=== PATIENT | male | born 1990 | race African-American/Black ===

== ENCOUNTER 2024-06-18 20:29 | Inpatient (IN) | payer OTHER ==
--- NOTE | 2024-06-18 21:43 | ED ---
General Adult HPI - General Chief complaint: Nausea/Vomiting/Diarrhea Stated complaint: Blood Sugar Issues Time Seen by Provider: 06/18/24 21:32 Source: family Mode of arrival: wheelchair - History of Present Illness Initial comments: This patient is a 34-year-old man who is brought to have evaluation of vomiting with dark emesis. The patient has history of sarcoidosis and also reportedly had stroke in February that caused problems with balance and slurred speech. The patient gets most of his care through the [place] area. Most of tonight's history comes from the patient's father who accompanies him. It sounds like the stroke was some sort of hemorrhage, and they do have follow-up with neurosurgery on Sunday. The patient had gone to the [place] area for a birthday constitution party over the weekend and had come back and has been having trouble with nausea, vomiting and not feeling well since that time. The patient also having some substernal pains that are not well-characterized, that accompanied the vomiting. No dyspnea, diaphoresis, or other symptoms. They had checked the patient's blood sugar and it has been running high the last . Onset/Timin -: days(s) Location: chest Radiation: non-radiation Quality: burning, aching Consistency: constant Improves with: none Worsens with: other ( vomiting) Associated Symptoms: nausea/vomiting Treatments Prior to Arrival: none - Related Data Home Medications Medication Instructions Recorded Confirmed Budesonide-Formot 160-4.5 Mcg 2 puff INHALATION RT-BID 06/19/24 06/19/24 [Symbicort 160-4.5 Mcg Inhaler] Simvastatin 40 mg PO DAILY 06/19/24 06/19/24 levETIRAcetam [Keppra] 500 mg PO BID 06/19/24 06/19/24 metFORMIN HCL 500 mg PO BID 06/19/24 06/19/24 Previous Rx's Medication Instructions Recorded Acetaminophen Tab [Tylenol] 650 mg PO Q4HR PRN tab 06/20/24 INSULIN LISPRO (HumaLOG) [HumaLOG] 10 unit SQ ACHS 30 Days #5 each 06/20/24 Insulin Glargine (Lantus) [Lantus 20 unit SQ DAILY@0700 30 Days #4 06/20/24 Vial] each Pantoprazole [Protonix] 40 mg PO DAILY #30 tab 06/20/24 Xgxbh-Ani-Pxfs 280-160-250 mg 1 each PO TID #90 packet 06/20/24 [Neutra-Phos Packet] lisinopriL [Zestril] 5 mg PO DAILY #30 tab 06/20/24 Magnesium Oxide [Mag-Oxide] 200 mg PO DAILY #5 tablet 06/21/24 predniSONE 10 mg PO DAILY tab 06/21/24 Allergies Allergy/AdvReac Type Severity Reaction Status Date / Time No Known Allergies Allergy Verified 06/18/24 21:11 Review of Systems ROS Statement: Those systems with pertinent positive or pertinent negative responses have been documented in the HPI. ROS Other: All systems not noted in ROS Statement are negative. Constitutional: Denies: fever, chills, weakness Respiratory: Denies: cough, dyspnea Cardiovascular: Reports: chest pain. Denies: palpitations, edema, syncope Gastrointestinal: Reports: nausea, vomiting, hematemesis. Denies: abdominal pain, melena, hematochezia Genitourinary: Denies: dysuria Musculoskeletal: Denies: back pain Skin: Denies: rash Neurological: Denies: headache, weakness Past Medical History Past Medical History: Diabetes Mellitus, Hyperlipidemia Additional Past Medical History / Comment(s): Stroke (02/2024), Sarcoidosis (02/2024) Past Surgical History: No Surgical Hx Reported Past Psychological History: No Psychological Hx Reported Smoking Status: Never smoker Past Alcohol Use History: None Reported Past Drug Use History: None Reported - Past Family History Father History Unknown: Yes Family Medical History: No Reported History Mother Family Medical History: Hypertension Additional Family Medical History / Comment(s): grandmother was diabetic General Exam General appearance: alert, in no apparent distress Head exam: Present: atraumatic, normocephalic Eye exam: Present: normal appearance. Absent: scleral icterus, conjunctival injection ENT exam: Present: mucous membranes dry Neck exam: Present: normal inspection Respiratory exam: Present: normal lung sounds bilaterally. Absent: respiratory distress, wheezes, rales, rhonchi, stridor, accessory muscle use Cardiovascular Exam: Present: normal rhythm, tachycardia, normal heart sounds. Absent: systolic murmur, diastolic murmur, rubs, gallop GI/Abdominal exam: Present: soft. Absent: distended, tenderness, guarding, rebound, rigid, mass Extremities exam: Present: normal inspection, normal capillary refill. Absent: pedal edema, calf tenderness Back exam: Present: normal inspection. Absent: CVA tenderness (R), CVA tenderness (L) Neurological exam: Present: alert, oriented X3, CN II-XII intact. Absent: motor sensory deficit Skin exam: Present: warm, dry, intact, normal color. Absent: rash Course Vital Signs 06/18/24 06/18/24 06/18/24 21:06 22:07 23:22 Temperature 97.3 F L Pulse Rate 145 H 130 H 134 H Respiratory 20 18 19 Rate Blood Pressure 124/95 134/121 153/113 O2 Sat by Pulse 97 98 100 Oximetry 06/19/24 06/19/24 06/19/24 02:00 03:05 04:17 Temperature 97.9 F Pulse Rate 133 H 141 H 134 H Respiratory 19 19 16 Rate Blood Pressure 147/112 138/113 139/113 O2 Sat by Pulse 100 99 100 Oximetry 06/19/24 05:25 Temperature 97.5 F L Pulse Rate Respiratory 16 Rate Blood Pressure O2 Sat by Pulse 97 Oximetry EKG Findings - EKG Results: EKG: interpreted by ERMD, sinus rhythm EKG shows: tachycardia (Rate 141) - Blocks, [place], Hypertrophy, ST Abn: QRS axis and voltage: left axis deviation (-30 to -90) Chamber hypertrophy or enlargement: only voltage criteria for left ventricular hypertrophy Repolarization changes or abnormalities: nonspecific abnormality, ST segment, and/or T wave Medical Decision Making - Medical Decision Making Was pt. sent in by a medical professional or institution (, JOSÉ MIGUEL, DEOILING MACHINE OPERATOR, urgent care, hospital, or retirement...) When possible be specific @ -[No] Did you speak to anyone other than the patient for history (EMS, parent, family, police, friend...)? What history was obtained from this source @ -[No] Did you review nursing and triage notes (agree or disagree)? Why? @ -[I reviewed and agree with nursing and triage notes] Were old charts reviewed (outside hosp., previous admission, EMS record, old EKG, old radiological studies, urgent care reports/EKG's, retirement records)? Report findings @ -[No old charts were available Differential Diagnosis (chest pain, altered mental status, abdominal pain women, abdominal pain men, vaginal bleeding, weakness, fever, dyspnea, syncope, h eadache, dizziness, GI bleed, back pain, seizure, CVA, palpatations, mental health, musculoskeletal)? @ -Differential vomiting: Appendicitis, cholecystitis, diverticulosis, ischemic bowel, pancreatitis, hepatitis, UTI, gastroenteritis, incarcerated hernia, bowel obstruction, constipation, inflammatory bowel, hepatitis, peptic ulcer disease, erforated viscus, testicular torsion, this is not meant to be an all-inclusive list EKG interpreted by me (3pts min.). @ -I interpreted [As above] X-rays interpreted by me (1pt min.). @ -[None done] CT interpreted by me (1pt min.). @ -[None done] U/S interpreted by me (1pt. min.). @ -[None done] What testing was considered but not performed or refused? (CT, X-rays, U/S, labs)? Why? @ -[None] What meds were considered but not given or refused? Why? @ -[None] Did you discuss the management of the patient with other professionals (professionals i.e. , PA, DEOILING MACHINE OPERATOR, lab, RT, psych nurse, case management social worker, collection team lead, teacher, radiation officer, welfare case worker)? Give summary @ -[Case discussed with the admitting physician and also with the crew caller and treatment recommendations are incorporated Was smoking cessation discussed for >3mins.? @ -[No] Was critical care preformed (if so, how long)? @ -[No] Were there social determinants of health that impacted care today? How? (Homelessness, low income, unemployed, alcoholism, drug addiction, transpo rtation, low edu. Level, literacy, decrease access to med. care, nursing home, rehab)? @ -[No] Was there de-escalation of care discussed even if they declined (Discuss DNR or withdrawal of care, Hospice)? DNR status @ -[No] What co-morbidities impacted this encounter? (DM, HTN, Smoking, COPD, CAD, Cancer, CVA, ARF, Chemo, Hep., AIDS, mental health diagnosis, sleep apnea, morbid obesity)? @ -[Sarcoidosis, previous hemorrhagic stroke Was patient admitted / discharged? Hospital course, mention meds given and route, prescriptions, significant lab abnormalities, going to OR and other pertinent info. @ -[Patient is a 34-year-old man here for vomiting and found to be in DKA. Also with marked hypercalcemia. The patient started on IV fluid and insulin. Patient will be admitted. Undiagnosed new problem with uncertain prognosis? @ -[No] Drug Therapy requiring intensive monitoring for toxicity (Heparin, Nitro, Insulin, Cardizem)? @ -[No] Were any procedures done? @ -[No] Diagnosis/symptom? @ -[Acute DKA Acute hypercalcemia Acute, or Chronic, or Acute on Chronic? @ -[Acute Uncomplicated (without systemic symptoms) or Complicated (systemic symptoms)? @ -[Uncomplicated Side effects of treatment? @ -[No] Exacerbation, Progression, or Severe Exacerbation? @ -[No] Poses a threat to life or bodily function? How? (Chest pain, [place], [place], pneumonia, PE, COPD, DKA, ARF, appy, cholecystitis, CVA, Diverticulitis, Homicidal, Suicidal, threat to staff... and all critical care pts) @ -[No] All treatments are based on ideal body weight as in ED triage - Lab Data Result diagrams: 06/21/24 05:24 06/21/24 05:24 Lab Results 06/18/24 06/18/24 06/18/24 Range/Units 21:50 21:50 21:50 WBC 8.19 (4.50-10.00) 10*3/uL RBC 6.77 H (4.40-5.60) 10*6/uL Hgb 19.7 H* (13.0-17.0) g/dL Hct 56.2 H (39.6-50.0) % MCV 83.0 (80.0-97.0) fL MCH 29.1 (27.0-32.0) pg MCHC 35.1 (32.0-37.0) g/dL Plt Count 315 (140-440) 10*3/uL MPV 11.1 (9.5-12.2) fL Immature Gran % (Auto) 0.7 % Neutrophils % 86.0 % Lymphocytes % 5.5 % Monocytes % 7.2 % Eosinophils % 0.0 % Basophils % 0.6 % Immature Gran # 0.06 H (0.00-0.04) 10*3/uL Neutrophils # 7.04 (1.80-7.70) 10*3/uL Lymphocytes # 0.45 L (0.90-5.00) 10*3/uL Monocytes # 0.59 (0.20-1.00) 10*3/uL Eosinophils # 0.00 L (0.04-0.35) 10*3/uL Basophils # 0.05 (0.00-0.10) 10*3/uL VBG pH 7.18 L* (7.31-7.41) VBG pCO2 38 (37-51) mmHg VBG HCO3 14 L (24-28) mmol/L Sodium 133 L (137-145) mmol/L Potassium 5.5 H (3.5-5.1) mmol/L Chloride 95 L (98-107) mmol/L Carbon Dioxide 9 L* (22-30) mmol/L Anion Gap 29 mmol/L BUN 15 (9-20) mg/dL Creatinine 0.85 (0.66-1.25) mg/dL Est GFR (CKD-EPI)AfAm >90 (>60 ml/min/1.73 sqM) Est GFR (CKD-EPI)NonAf >90 (>60 ml/min/1.73 sqM) Glucose 436 H (74-99) mg/dL POC Glucose (mg/dL) (70-110) mg/dL POC Glu Heavy Threader ID Calcium 15.6 H* (8.4-10.2) mg/dL Total Bilirubin 0.9 (0.2-1.3) mg/dL AST 16 L (17-59) U/L ALT 20 (4-49) U/L Alkaline Phosphatase 71 (38-126) U/L C-Reactive Protein 1.7 H (<1.0) mg/dL Total Protein 7.8 (6.3-8.2) g/dL Albumin 5.2 H (3.5-5.0) g/dL Amylase 50 (30-110) U/L Lipase 162 (23-300) U/L Vit D 1,25-Dihydroxy (19.9-79.3) pg/mL Urine Color Urine Appearance (Clear) Urine pH (5.0-8.0) Ur Specific [place] (1.001-1.035) Urine Protein (Negative) Urine Glucose (UA) (Negative) Urine Ketones (Negative) Urine Blood (Negative) Urine Nitrite (Negative) Urine Bilirubin (Negative) Urine Urobilinogen (<2.0) mg/dL Ur Leukocyte Esterase (Negative) Acetone, Qual Positive (Negative) 06/18/24 06/18/24 06/18/24 Range/Units 22:10 23:22 23:30 WBC (4.50-10.00) 10*3/uL RBC (4.40-5.60) 10*6/uL Hgb (13.0-17.0) g/dL Hct (39.6-50.0) % MCV (80.0-97.0) fL MCH (27.0-32.0) pg MCHC (32.0-37.0) g/dL Plt Count (140-440) 10*3/uL MPV (9.5-12.2) fL Immature Gran % (Auto) % Neutrophils % % Lymphocytes % % Monocytes % % Eosinophils % % Basophils % % Immature Gran # (0.00-0.04) 10*3/uL Neutrophils # (1.80-7.70) 10*3/uL Lymphocytes # (0.90-5.00) 10*3/uL Monocytes # (0.20-1.00) 10*3/uL Eosinophils # (0.04-0.35) 10*3/uL Basophils # (0.00-0.10) 10*3/uL VBG pH (7.31-7.41) VBG pCO2 (37-51) mmHg VBG HCO3 (24-28) mmol/L Sodium (137-145) mmol/L Potassium (3.5-5.1) mmol/L Chloride (98-107) mmol/L Carbon Dioxide (22-30) mmol/L Anion Gap mmol/L BUN (9-20) mg/dL Creatinine (0.66-1.25) mg/dL Est GFR (CKD-EPI)AfAm (>60 ml/min/1.73 sqM) Est GFR (CKD-EPI)NonAf (>60 ml/min/1.73 sqM) Glucose (74-99) mg/dL POC Glucose (mg/dL) 423 H 465 H (70-110) mg/dL POC Glu Heavy Threader ID Rhezie Emie Rhezie Emie Calcium (8.4-10.2) mg/dL Total Bilirubin (0.2-1.3) mg/dL AST (17-59) U/L ALT (4-49) U/L Alkaline Phosphatase (38-126) U/L C-Reactive Protein (<1.0) mg/dL Total Protein (6.3-8.2) g/dL Albumin (3.5-5.0) g/dL Amylase (30-110) U/L Lipase (23-300) U/L Vit D 1,25-Dihydroxy (19.9-79.3) pg/mL Urine Color Colorless Urine Appearance Clear (Clear) Urine pH 5.5 (5.0-8.0) Ur Specific [place] 1.022 (1.001-1.035) Urine Protein Trace H (Negative) Urine Glucose (UA) 4+ H (Negative) Urine Ketones 4+ H (Negative) Urine Blood Negative (Negative) Urine Nitrite Negative (Negative) Urine Bilirubin Negative (Negative) Urine Urobilinogen <2.0 (<2.0) mg/dL Ur Leukocyte Esterase Negative (Negative) Acetone, Qual (Negative) 06/19/24 06/19/24 06/19/24 Range/Units 01:52 02:00 03:05 WBC (4.50-10.00) 10*3/uL RBC (4.40-5.60) 10*6/uL Hgb (13.0-17.0) g/dL Hct (39.6-50.0) % MCV (80.0-97.0) fL MCH (27.0-32.0) pg MCHC (32.0-37.0) g/dL Plt Count (140-440) 10*3/uL MPV (9.5-12.2) fL Immature Gran % (Auto) % Neutrophils % % Lymphocytes % % Monocytes % % Eosinophils % % Basophils % % Immature Gran # (0.00-0.04) 10*3/uL Neutrophils # (1.80-7.70) 10*3/uL Lymphocytes # (0.90-5.00) 10*3/uL Monocytes # (0.20-1.00) 10*3/uL Eosinophils # (0.04-0.35) 10*3/uL Basophils # (0.00-0.10) 10*3/uL VBG pH (7.31-7.41) VBG pCO2 (37-51) mmHg VBG HCO3 (24-28) mmol/L Sodium (137-145) mmol/L Potassium (3.5-5.1) mmol/L Chloride (98-107) mmol/L Carbon Dioxide (22-30) mmol/L Anion Gap mmol/L BUN (9-20) mg/dL Creatinine (0.66-1.25) mg/dL Est GFR (CKD-EPI)AfAm (>60 ml/min/1.73 sqM) Est GFR (CKD-EPI)NonAf (>60 ml/min/1.73 sqM) Glucose (74-99) mg/dL POC Glucose (mg/dL) 397 H 215 H (70-110) mg/dL POC Glu Heavy Threader ID Rhezie Emie Rhezie Emie Calcium (8.4-10.2) mg/dL Total Bilirubin (0.2-1.3) mg/dL AST (17-59) U/L ALT (4-49) U/L Alkaline Phosphatase (38-126) U/L C-Reactive Protein (<1.0) mg/dL Total Protein (6.3-8.2) g/dL Albumin (3.5-5.0) g/dL Amylase (30-110) U/L Lipase (23-300) U/L Vit D 1,25-Dihydroxy 14.7 L (19.9-79.3) pg/mL Urine Color Urine Appearance (Clear) Urine pH (5.0-8.0) Ur Specific [place] (1.001-1.035) Urine Protein (Negative) Urine Glucose (UA) (Negative) Urine Ketones (Negative) Urine Blood (Negative) Urine Nitrite (Negative) Urine Bilirubin (Negative) Urine Urobilinogen (<2.0) mg/dL Ur Leukocyte Esterase (Negative) Acetone, Qual (Negative) 06/19/24 Range/Units 04:09 WBC (4.50-10.00) 10*3/uL RBC (4.40-5.60) 10*6/uL Hgb (13.0-17.0) g/dL Hct (39.6-50.0) % MCV (80.0-97.0) fL MCH (27.0-32.0) pg MCHC (32.0-37.0) g/dL Plt Count (140-440) 10*3/uL MPV (9.5-12.2) fL Immature Gran % (Auto) % Neutrophils % % Lymphocytes % % Monocytes % % Eosinophils % % Basophils % % Immature Gran # (0.00-0.04) 10*3/uL Neutrophils # (1.80-7.70) 10*3/uL Lymphocytes # (0.90-5.00) 10*3/uL Monocytes # (0.20-1.00) 10*3/uL Eosinophils # (0.04-0.35) 10*3/uL Basophils # (0.00-0.10) 10*3/uL VBG pH (7.31-7.41) VBG pCO2 (37-51) mmHg VBG HCO3 (24-28) mmol/L Sodium (137-145) mmol/L Potassium (3.5-5.1) mmol/L Chloride (98-107) mmol/L Carbon Dioxide (22-30) mmol/L Anion Gap mmol/L BUN (9-20) mg/dL Creatinine (0.66-1.25) mg/dL Est GFR (CKD-EPI)AfAm (>60 ml/min/1.73 sqM) Est GFR (CKD-EPI)NonAf (>60 ml/min/1.73 sqM) Glucose (74-99) mg/dL POC Glucose (mg/dL) 175 H (70-110) mg/dL POC Glu Heavy Threader ID Jenifer [place]cong Calcium (8.4-10.2) mg/dL Total Bilirubin (0.2-1.3) mg/dL AST (17-59) U/L ALT (4-49) U/L Alkaline Phosphatase (38-126) U/L C-Reactive Protein (<1.0) mg/dL Total Protein (6.3-8.2) g/dL Albumin (3.5-5.0) g/dL Amylase (30-110) U/L Lipase (23-300) U/L Vit D 1,25-Dihydroxy (19.9-79.3) pg/mL Urine Color Urine Appearance (Clear) Urine pH (5.0-8.0) Ur Specific [place] (1.001-1.035) Urine Protein (Negative) Urine Glucose (UA) (Negative) Urine Ketones (Negative) Urine Blood (Negative) Urine Nitrite (Negative) Urine Bilirubin (Negative) Urine Urobilinogen (<2.0) mg/dL Ur Leukocyte Esterase (Negative) Acetone, Qual (Negative) Disposition Clinical Impression: DKA (diabetic ketoacidosis), Hypercalcemia Disposition: ADMITTED IP TO THIS HOSP Condition: Stable Is patient prescribed a controlled substance at d/c from ED?: No
[2024-06-18] MEDS: ONDANSETRON 4 MG/2 ML VIAL IVP STA (21:49)
[2024-06-18] MEDS: SODIUM CHLORIDE 0.9% 1,000 ML IV ONE ×2 (21:49→23:41)
[2024-06-18 22:04] LABS: Basophils # (A) 0.05 10*3/uL (0.00-0.10); Basophils % (A) 0.6 %; Lymphocytes # (A) 0.45 10*3/uL (0.90-5.00); Lymphocytes % (A) 5.5 %; MCH 29.1 pg (27.0-32.0); MCHC 35.1 g/dL (32.0-37.0); Mean Platelet Volume 11.1 fL (9.5-12.2); Monocytes # (A) 0.59 10*3/uL (0.20-1.00); Monocytes % (A) 7.2 %; Neutrophils # (A) 7.04 10*3/uL (1.80-7.70); Platelet Count 315 10*3/uL (140-440); RBC 6.77 10*6/uL (4.40-5.60); RDW 13.6 % (11.5-14.5); WBC 8.19 10*3/uL (4.50-10.00)
[2024-06-18 22:11] LABS: Glucose,Whole Blood 423 mg/dL (70-110)
[2024-06-18] MEDS: INSULIN REGULAR 100 UNIT/ML VIAL (IV) SQ STA (22:13)
[2024-06-18 22:16] LABS: HCT 56.2 % (39.6-50.0); HGB 19.7 g/dL (13.0-17.0)
[2024-06-18 22:18] LABS: ALT 20 U/L (4-49); AST 16 U/L (17-59); African American GFR (CKD) >90 (>60 ml/min/1.73 sqM); Albumin 5.2 g/dL (3.5-5.0); Alkaline Phosphatase 71 U/L (38-126); Amylase 50 U/L (30-110); Anion Gap 29 mmol/L; Blood Urea Nitrogen 15 mg/dL (9-20); C Reactive Protein 1.7 mg/dL (<1.0); Chloride 95 mmol/L (98-107); Glucose 436 mg/dL (74-99); Lipase 162 U/L (23-300); Non-African American GFR(CKD) >90 (>60 ml/min/1.73 sqM); Potassium 5.5 mmol/L (3.5-5.1); Sodium 133 mmol/L (137-145); Total Bilirubin 0.9 mg/dL (0.2-1.3); Total Protein 7.8 g/dL (6.3-8.2)
[2024-06-18 23:08] LABS: Calcium 15.6 mg/dL (8.4-10.2); Carbon Dioxide 9 mmol/L (22-30)
[2024-06-18 23:31] LABS: Glucose,Whole Blood 465 mg/dL (70-110)
[2024-06-18 23:34] LABS: Appearance,Urine Clear (Clear); Bilirubin,Urine Negative (Negative); Blood,Urine Negative (Negative); Color,Urine Colorless; Glucose,Urine (UA) 4+ (Negative); Leukocyte Esterase,Urine Negative (Negative); Nitrite,Urine Negative (Negative); PH, Urine 5.5 (5.0-8.0); Protein,Urine Trace (Negative); Specific Gravity,Urine 1.022 (1.001-1.035); Urobilinogen,Urine <2.0 mg/dL (<2.0)
[2024-06-19 00:02] LABS: Ketones,Urine 4+ (Negative)
[2024-06-19] MEDS ORDERED: Potassium Replacement Protocol 1 EACH MISC MISCELLANE PRN (01:11)
[2024-06-19] MEDS ORDERED: Magnesium Replacement Protocol 1 EACH MISC MISCELLANE PRN (01:11)
[2024-06-19] MEDS ORDERED: DEXTROSE 50% SYRINGE 50 ML IVP PRN ×2 (01:11)
[2024-06-19] MEDS: CALCITONIN INJ 200 UNIT/ML (MDV) VIAL SQ ONE (01:34)
[2024-06-19] MEDS: INSULIN REGULAR 100 UNIT in SODIUM CHLORIDE 0.9% 100 ML IV SCH (01:52)
[2024-06-19 01:53] LABS: Glucose,Whole Blood 397 mg/dL (70-110)
[2024-06-19] MEDS: SODIUM CHLORIDE 0.9% 1,000 ML IV SCH ×2 (01:59→14:59)
[2024-06-19 02:59] LABS: VBG PH 7.18 (7.31-7.41)
[2024-06-19 03:06] LABS: Glucose,Whole Blood 215 mg/dL (70-110)
[2024-06-19] MEDS: D5-0.45% NACL WITH KCL 20MEQ/L 1,000 ML IV SCH (03:37)
[2024-06-19 04:10] LABS: Glucose,Whole Blood 175 mg/dL (70-110)
[2024-06-19] MEDS ORDERED: NALOXONE 0.4 MG/ML 1 ML VIAL IV PRN (04:34)
[2024-06-19] MEDS ORDERED: ACETAMINOPHEN TAB 325 MG TAB PO PRN (04:34)
[2024-06-19] MEDS: lisinopriL 10 MG TAB PO STA (05:04)
[2024-06-19 05:08] LABS: Glucose,Whole Blood 205 mg/dL (70-110)
[2024-06-19 05:32] LABS: Ionized Calcium 5.8 mg/dL (4.5-5.3)
[2024-06-19 05:43] LABS: African American GFR (CKD) >90 (>60 ml/min/1.73 sqM); Anion Gap 16 mmol/L; Blood Urea Nitrogen 12 mg/dL (9-20); Carbon Dioxide 17 mmol/L (22-30); Chloride 104 mmol/L (98-107); Glucose 184 mg/dL (74-99); Magnesium 1.4 mg/dL (1.6-2.3); Non-African American GFR(CKD) >90 (>60 ml/min/1.73 sqM); Phosphorus 2.8 mg/dL (2.5-4.5); Sodium 137 mmol/L (137-145)
[2024-06-19 06:09] LABS: Glucose,Whole Blood 175 mg/dL (70-110)
[2024-06-19] MEDS: MAGNESIUM SULFATE-D5W PMX 1 GM in DEXTROSE/WATER 1 100ML.BAG IVPB SCH (06:22)
--- NOTE | 2024-06-19 06:37 | P.CNPUL ---
History of Present Illness Consult date: 06/19/24 Requesting physician: Niraj Alfaro Reason for consult: other (DKA, ICU management) Chief complaint: Nausea, vomiting History of present illness: Patient is a 34-year-old -Bulgarian male presents to the emergency department last night with presentation of DKA. The patient himself cannot p rovide information. No family currently present. According to ER documentation, patient receives most of his care in the [place] area. Reports of recently being diagnosed with pulmonary sarcoidosis, unclear if extrathoracic involvement or previous biopsy. Currently, on systemic steroids on outpatient basis. He has been taking metformin for high blood sugars. Is established with an out of town start up specialist Fátima Spivey out of [place], [place]. Per ER record, had a complicated stay at [facility]. May have had hemorrhagic stroke. He has previously been started on Keppra. He has an a ppointment with a neurologist June 25. We are going to request the medical records. Presented with a chief complaint of intractable nausea and vomiting. Blood glucose elevated at 465 serum bicarb 9, anion gap 29, urine ketone positive. VBG with a pH of 7.18, pCO2 38. He has been started on the DKA protocol. Also, calcium was critically elevated at 15.6. Did receive a dose of calcitonin in the ED. Clinically appears dehydrated. Remaining lab work including a WBC count of 8.2, hemoglobin 19.7, hematocrit 56.2, platelets 315. CMP: Sodium 133, potassium 5.5, chloride 95, serum bicarb 9, anion gap 29, BUN 15, creatinine 0.85, glucose is currently 436. LFTs not elevated. Amylase 50 and lipase 162. EKG: Sinus tachycardia, rate 141 bpm, left axis deviation. No acute ischemic changes. Currently being evaluated in the emergency department. He is lethargic and a poor historian. No further nausea or vomiting. No signs of distress. Insulin infusing at 7.3 units/hr. Normal saline infusing at 200 mL/h. Most recent [id number] glucose 215. Current vital signs: Temperature 97.9 F, heart rate 133 bpm, blood pressure 147/112 mmHg, nontachypneic, SpO2 100% on 2 L/min nasal cannula. Review of Systems ROS unobtainable: due to mental status Past Medical History Past Medical History: Diabetes Mellitus, Hyperlipidemia Additional Past Medical History / Comment(s): Stroke (02/2024), Sarcoidosis (02/2024) Past Surgical History: No Surgical Hx Reported Past Psychological History: No Psychological Hx Reported Smoking Status: Never smoker Past Alcohol Use History: None Reported Past Drug Use History: None Reported - Past Family History Father History Unknown: Yes Family Medical History: No Reported History Mother Family Medical History: Hypertension Additional Family Medical History / Comment(s): grandmother was diabetic Medications and Allergies Allergies Allergy/AdvReac Type Severity Reaction Status Date / Time No Known Allergies Allergy Verified 06/18/24 21:11 Physical Exam Vitals: Vital Signs Temp Pulse Resp BP Pulse Ox 06/19/24 03:05 141 H 19 138/113 99 06/19/24 02:00 97.9 F 133 H 19 147/112 100 06/18/24 23:22 134 H 19 153/113 100 06/18/24 22:07 130 H 18 134/121 98 06/18/24 21:06 97.3 F L 145 H 20 124/95 97 Intake and Output 06/18/24 06/18/24 06/19/24 14:59 22:59 06:59 Intake Total 10.995 Balance 10.995 Intake: Intake, IV Titration 10.995 Amount Insulin Regular 100 unit 10.995 In Sodium Chloride 0.9% 100 ml @ 0.1 UNITS/KG/HR 7.33 mls/hr IV .[id number] [facility] Rx#:[id number] Other: Weight 72.575 kg GENERAL EXAM: Lethargic, 34-year old -Bulgarian male, in no apparent distress. HEAD: Normocephalic and atraumatic EYES: Normal reaction of pupils, equal size. NOSE: Clear with pink turbinates. THROAT: No erythema or exudates. NECK: No masses, no JVD. CHEST: No chest wall deformity. LUNGS: Equal air entry with no crackles, wheeze, rhonchi or dullness. On 2 L/min nasal cannula. No conversational dyspnea or accessory muscle use.. CVS: S1 and S2 normal with no audible murmur, regular rhythm. No extra heart sounds ABDOMEN: No hepatosplenomegaly, active bowel sounds, no guarding or rigidity. SPINE: No scoliosis or deformity SKIN: No rashes. No obvious cutaneous lesions CENTRAL NERVOUS SYSTEM: No focal deficits, tone is normal in all 4 extremities. EXTREMITIES: There is no peripheral edema, clubbing, or cyanosis. No palpable peripheral lympadenopathy. Peripheral pulses are intact. Results - Laboratory Findings CBC and BMP: 06/18/24 21:50 06/19/24 04:56 Abnormal lab findings: Abnormal Labs 06/18/24 06/18/24 06/18/24 21:50 21:50 21:50 RBC 6.77 H Hgb 19.7 H* Hct 56.2 H Immature Gran # 0.06 H Lymphocytes # 0.45 L Eosinophils # 0.00 L VBG pH 7.18 L* VBG HCO3 14 L Sodium 133 L Potassium 5.5 H Chloride 95 L Carbon Dioxide 9 L* Glucose 436 H POC Glucose (mg/dL) Calcium 15.6 H* AST 16 L C-Reactive Protein 1.7 H Albumin 5.2 H Urine Protein Urine Glucose (UA) Urine Ketones 06/18/24 06/18/24 06/18/24 22:10 23:22 23:30 RBC Hgb Hct Immature Gran # Lymphocytes # Eosinophils # VBG pH VBG HCO3 Sodium Potassium Chloride Carbon Dioxide Glucose POC Glucose (mg/dL) 423 H 465 H Calcium AST C-Reactive Protein Albumin Urine Protein Trace H Urine Glucose (UA) 4+ H Urine Ketones 4+ H 06/19/24 06/19/24 01:52 03:05 RBC Hgb Hct Immature Gran # Lymphocytes # Eosinophils # VBG pH VBG HCO3 Sodium Potassium Chloride Carbon Dioxide Glucose POC Glucose (mg/dL) 397 H 215 H Calcium AST C-Reactive Protein Albumin Urine Protein Urine Glucose (UA) Urine Ketones Assessment and Plan Assessment: Acute diabetic ketoacidosis; blood glucose 465, serum bicarb 9, anion gap 29, urine ketone positive. Anion gap metabolic acidosis, secondary to above Intractable nausea and vomiting and volume depletion Severe hypercalcemia Sinus tachycardia Hypertension Reported history of hemorrhagic stroke Reported history of pulmonary sarcoidosis Plan: Continue on DKA protocol Continue insulin per protocol Continue with IV fluid hydration Monitor electrolytes every 4 hours Check ionized calcium, parathyroid hormone, calcitrol check HA1C Obtain chest x-ray Request records from [facility] Did have a CT of the chest done earlier yesterday evening, findings remarkable for scattered reticular nodular opacities which could be compatible with pulmonary sarcoidosis, no significant lymphadenopathy noted. We will continue to follow, additional recommendations forthcoming I have personally seen and examined the patient, performed the documentation and the assessment and plan as written. Number of minutes spent on the visit:20 Time with Patient: Greater than 30
[2024-06-19 07:01] LABS: Glucose,Whole Blood 203 mg/dL (70-110)
--- NOTE | 2024-06-19 07:34 | XR ---
EXAMINATION TYPE: XR chest 1V portable DATE OF EXAM: 06/19/2024 5:14 AM COMPARISON: None. CLINICAL INDICATION: Male, 34 years old with history of shortness of breath, TECHNIQUE: Single frontal view of the chest is obtained. FINDINGS: There are vague perihilar and infrahilar opacity seen which may reflect underlying pneumoni a. Correlate clinically and progress studies are recommended. The cardiac silhouette size is within n ormal limits. The osseous structures are intact. IMPRESSION: There are vague perihilar and infrahilar opacity seen which may reflect underlying pneum onia. Correlate clinically and progress studies are recommended. [facility], , 06/19/2024 7:32 AM
[2024-06-19] MEDS: FAMOTIDINE 20 MG/2 ML VIAL IV SCH (08:01)
[2024-06-19 08:13] LABS: Glucose,Whole Blood 159 mg/dL (70-110)
[2024-06-19 08:32] LABS: African American GFR (CKD) >90 (>60 ml/min/1.73 sqM); Anion Gap 10 mmol/L; Blood Urea Nitrogen 11 mg/dL (9-20); Carbon Dioxide 20 mmol/L (22-30); Chloride 105 mmol/L (98-107); Glucose 187 mg/dL (74-99); Non-African American GFR(CKD) >90 (>60 ml/min/1.73 sqM); Potassium 3.7 mmol/L (3.5-5.1); Sodium 135 mmol/L (137-145)
[2024-06-19 08:34] LABS: African American GFR (CKD) >90 (>60 ml/min/1.73 sqM); Anion Gap 11 mmol/L; Blood Urea Nitrogen 11 mg/dL (9-20); Calcium 9.9 mg/dL (8.4-10.2); Carbon Dioxide 17 mmol/L (22-30); Chloride 106 mmol/L (98-107); Glucose 185 mg/dL (74-99); Non-African American GFR(CKD) >90 (>60 ml/min/1.73 sqM); Sodium 134 mmol/L (137-145)
[2024-06-19 08:46] LABS: Potassium 4.2 mmol/L (3.5-5.1)
[2024-06-19 09:29] LABS: Glucose,Whole Blood 202 mg/dL (70-110)
[2024-06-19 09:49] VITALS: BMI 22.3
[2024-06-19 10:07] LABS: Glucose,Whole Blood 185 mg/dL (70-110)
[2024-06-19 11:04] LABS: Glucose,Whole Blood 183 mg/dL (70-110)
--- NOTE | 2024-06-19 11:22 | P.NPCON ---
History of Present Illness - History of Present Illness Patient is a 34-year-old -Argent[place] male with history of type 1 diabetes admitted to the hospital with complaints of nausea and vomiting, abdominal pain and not feeling well. Recently diagnosed with pulmonary sarcoidosis. Patient was found to be in DKA and is currently maintained on insulin drip. Calcium was elevated at 15.6 on admission. Uncle is present at bedside and states that he has been taking a lot of Tums for heartburn recently. It appears that patient is maintained on prednisone, I believe this is mostly for his sarcoidosis which can contribute to the hypercalcemia as well and responds well to prednisone. No history of fever chills, cough or urinary symptoms. Past Medical History Past Medical History: Diabetes Mellitus, Hyperlipidemia Additional Past Medical History / Comment(s): Stroke (02/2024), Sarcoidosis (02/2024) History of Any Multi-Drug Resistant Organisms: None Reported Past Surgical History: No Surgical Hx Reported Additional Past Surgical History / Comment(s): chest tube placement in Feb 2024 Past Anesthesia/Blood Transfusion Reactions: No Reported Reaction Past Psychological History: No Psychological Hx Reported Smoking Status: Never smoker Past Alcohol Use History: None Reported Past Drug Use History: None Reported - Past Family History Father History Unknown: Yes Family Medical History: No Reported History Mother Family Medical History: Hypertension Additional Family Medical History / Comment(s): grandmother was diabetic Medications and Allergies Home Medications Medication Instructions Recorded Confirmed Type Budesonide-Formot 160-4.5 Mcg 2 puff INHALATION RT-BID 06/19/24 06/19/24 History [Symbicort 160-4.5 Mcg Inhaler] Simvastatin 40 mg PO DAILY 06/19/24 06/19/24 History levETIRAcetam [Keppra] 500 mg PO BID 06/19/24 06/19/24 History metFORMIN HCL 500 mg PO BID 06/19/24 06/19/24 History predniSONE [Deltasone] 20 mg PO DAILY 06/19/24 06/19/24 History Allergies Allergy/AdvReac Type Severity Reaction Status Date / Time No Known Allergies Allergy Verified 06/18/24 21:11 Physical Exam Vitals: Vital Signs Temp Pulse Pulse Resp BP BP Pulse Ox 06/19/24 11:00 126 H 17 114/89 98 06/19/24 10:00 138 H 23 131/90 97 06/19/24 09:00 122 H 16 131/105 99 06/19/24 08:00 98.2 F 130 H 18 136/103 98 06/19/24 07:00 128 H 17 151/115 99 06/19/24 06:00 130 H 15 147/111 99 06/19/24 05:31 97.5 F L 135 H 13 147/111 96 06/19/24 05:25 97.5 F L 16 97 06/19/24 04:17 134 H 16 139/113 100 06/19/24 03:05 141 H 19 138/113 99 06/19/24 02:00 97.9 F 133 H 19 147/112 100 06/18/24 23:22 134 H 19 153/113 100 06/18/24 22:07 130 H 18 134/121 98 06/18/24 21:06 97.3 F L 145 H 20 124/95 97 Intake and Output 06/18/24 06/19/24 06/19/24 22:59 06:59 14:59 Intake Total 181.275 757.33 Output Total 400 Balance -218.725 757.33 Intake: Intake, IV Titration 181.275 757.33 Amount D5-0.45% NaCl with KCl 150 750 20Meq/l 1,000 ml @ 150 mls/hr IV .[id number] [facility] Rx# :[id number] Insulin Regular 100 unit 31.275 7.33 In Sodium Chloride 0.9% 100 ml @ 0.1 UNITS/KG/HR 7.33 mls/hr IV .[id number] [facility] Rx#:[id number] Output: Urine 400 Other: Voiding Method Urinal # Voids 1 1 Weight 72.575 kg 72.575 kg 72.575 kg Patient is awake, comfortable No acute distress Examination of the heart S1 and S2 Examination of the lungs bilateral breath sounds are heard Abdomen is soft nontender Examination of lower extremities shows no evidence of edema [employer] exam shows patient is moving all 4 extremities but he only seems to co mmunicate through his uncle. Results - Lab Results Most recent lab results Calcium 9.9 mg/dL (8.4-10.2) 06/19/24 08:08 Phosphorus 1.8 mg/dL (2.5-4.5) L 06/19/24 08:08 Magnesium 1.4 mg/dL (1.6-2.3) L 06/19/24 04:56 06/18/24 21:50 06/19/24 08:08 Assessment and Plan Assessment: 1. Hypercalcemia associated with excessive use of Tums recently and underlying history of sarcoidosis, currently improved. 2. DKA maintained on insulin drip and IV fluids, blood sugar now around 183. 3. Anion gap metabolic acidosis from DKA 4. Hypophosphatemia from correction of DKA and poor nutritional intake 5. Recent diagnosis of pulmonary sarcoidosis, patient was maintained on p rednisone prior to admission. Plan: Continue with IV fluids Continue with prednisone that patient was taking at home. This was most likely for his recent diagnosis of pulmonary sarcoidosis May resume KARRIE inhibitors if blood pressure remains elevated Replace phosphorus Thank you for the consultation. We will continue to follow the patient with you during his hospitalization.
[2024-06-19 12:01] LABS: Basophils # (A) 0.02 10*3/uL (0.00-0.10); Basophils % (A) 0.3 %; Eosinophils # (A) 0.04 10*3/uL (0.04-0.35); Eosinophils % (A) 0.7 %; HCT 45.3 % (39.6-50.0); Lymphocytes # (A) 0.68 10*3/uL (0.90-5.00); Lymphocytes % (A) 11.6 %; MCH 29.2 pg (27.0-32.0); MCHC 35.1 g/dL (32.0-37.0); MCV 83.3 fL (80.0-97.0); Mean Platelet Volume 10.8 fL (9.5-12.2); Monocytes # (A) 0.63 10*3/uL (0.20-1.00); Monocytes % (A) 10.7 %; Neutrophils # (A) 4.48 10*3/uL (1.80-7.70); Neutrophils % (A) 76.2 %; Platelet Count 237 10*3/uL (140-440); RBC 5.44 10*6/uL (4.40-5.60); RDW 13.2 % (11.5-14.5); WBC 5.88 10*3/uL (4.50-10.00)
[2024-06-19] MEDS: POTAS-SOD-PHOS 280-160-250 MG 1 EACH PACKET PO SCH (12:08)
[2024-06-19 12:11] LABS: Glucose,Whole Blood 160 mg/dL (70-110)
[2024-06-19 12:14] LABS: HGB 15.9 g/dL (13.0-17.0)
[2024-06-19 12:25] LABS: African American GFR (CKD) >90 (>60 ml/min/1.73 sqM); Anion Gap 9 mmol/L; Blood Urea Nitrogen 11 mg/dL (9-20); Calcium 9.2 mg/dL (8.4-10.2); Carbon Dioxide 21 mmol/L (22-30); Chloride 103 mmol/L (98-107); Glucose 160 mg/dL (74-99); Magnesium 1.6 mg/dL (1.6-2.3); Non-African American GFR(CKD) >90 (>60 ml/min/1.73 sqM); Phosphorus 1.4 mg/dL (2.5-4.5); Potassium 3.6 mmol/L (3.5-5.1); Sodium 133 mmol/L (137-145)
[2024-06-19 13:01] LABS: Glucose,Whole Blood 181 mg/dL (70-110)
--- NOTE | 2024-06-19 13:37 | P.HPIM ---
History of Present Illness 34-year-old male is admitted for DKA patient did not provide any history to me patient had a history of hemorrhagic stroke in the past since then patient is minimally verbal but does talk to her family members. Patient also has history of sarcoidosis for which patient is on prednisone patient is presently admitted for diabetic ketoacidosis with anion gap going up to 29. Blood glucose is highly elevated to fourth for 36 patient is on metformin. I do not have any hemoglobin A1c available at this time anion gap at this time resolved patient is a type I diabetic type II insulin deficiency diabetic. Will require insulin. REVIEW OF SYSTEMS: All other systems are negative except those mentioned in the HPI PHYSICAL EXAMINATION: GENERAL: Sleeping arousable HEENT: Pupils are round and equally reacting to light. EOMI. No scleral icterus. No conjunctival pallor. Normocephalic, atraumatic. No pharyngeal erythema. No thyromegaly. CARDIOVASCULAR: S1 and S2 present. No murmurs, rubs, or gallops. PULMONARY: Chest is clear to auscultation, no wheezing or crackles. ABDOMEN: Soft, nontender, nondistended, normoactive bowel sounds. No palpable organomegaly. MUSCULOSKELETAL: No joint swelling or deformity. EXTREMITIES: No cyanosis, clubbing, or pedal edema. NEUROLOGICAL: Gross neurological examination did not reveal any focal deficits. SKIN: No rashes. Assessment and plan -Diabetic ketoacidosis: Probably precipitated by prednisone. Patient is on prednisone for sarcoidosis which should be resumed patient will be started on 40 units of long-acting insulin along with sliding scale electrolyte monitoring hemoglobin A1c. Patient will be transition to subcutaneous insulin as DKA resolved at this time. -Hypercalcemia secondary to sarcoidosis and dehydration from DKA both of which improved although parathyroid hormone ionized calcium and calcitriol were ordered. Sinus tachycardia probably secondary to DKA we will continue to monitor his heart rate. - History of hemorrhagic stroke in the past for which patient is on Keppra which will be resumed for stroke prevention - Hyperlipidemia continue with simvastatin - Hypertension for which patient was started on lisinopril I believe by grounds person DVT prophylaxis: Lovenox Past Medical History Past Medical History: Diabetes Mellitus, Hyperlipidemia Additional Past Medical History / Comment(s): Stroke (02/2024), Sarcoidosis (02/2024) History of Any Multi-Drug Resistant Organisms: None Reported Past Surgical History: No Surgical Hx Reported Additional Past Surgical History / Comment(s): chest tube placement in Feb 2024 Past Anesthesia/Blood Transfusion Reactions: No Reported Reaction Past Psychological History: No Psychological Hx Reported Smoking Status: Never smoker Past Alcohol Use History: None Reported Past Drug Use History: None Reported - Past Family History Father History Unknown: Yes Family Medical History: No Reported History Mother Family Medical History: Hypertension Additional Family Medical History / Comment(s): grandmother was diabetic Medications and Allergies Home Medications Medication Instructions Recorded Confirmed Type Budesonide-Formot 160-4.5 Mcg 2 puff INHALATION RT-BID 06/19/24 06/19/24 History [Symbicort 160-4.5 Mcg Inhaler] Simvastatin 40 mg PO DAILY 06/19/24 06/19/24 History levETIRAcetam [Keppra] 500 mg PO BID 06/19/24 06/19/24 History metFORMIN HCL 500 mg PO BID 06/19/24 06/19/24 History predniSONE [Deltasone] 20 mg PO DAILY 06/19/24 06/19/24 History Allergies Allergy/AdvReac Type Severity Reaction Status Date / Time No Known Allergies Allergy Verified 06/18/24 21:11 Physical Exam Vitals: Vital Signs Temp Pulse Pulse Resp BP BP Pulse Ox 06/19/24 13:00 124 H 14 113/85 97 06/19/24 12:00 97.1 F L 125 H 19 116/87 97 06/19/24 11:00 126 H 17 114/89 98 06/19/24 10:00 138 H 23 131/90 97 06/19/24 09:00 122 H 16 131/105 99 06/19/24 08:00 98.2 F 130 H 18 136/103 98 06/19/24 07:00 128 H 17 151/115 99 06/19/24 06:00 130 H 15 147/111 99 06/19/24 05:31 97.5 F L 135 H 13 147/111 96 06/19/24 05:25 97.5 F L 16 97 06/19/24 04:17 134 H 16 139/113 100 06/19/24 03:05 141 H 19 138/113 99 06/19/24 02:00 97.9 F 133 H 19 147/112 100 06/18/24 23:22 134 H 19 153/113 100 06/18/24 22:07 130 H 18 134/121 98 06/18/24 21:06 97.3 F L 145 H 20 124/95 97 Intake and Output 06/18/24 06/19/24 06/19/24 22:59 06:59 14:59 Intake Total 475.103 7436.33 Output Total 400 Balance -679.374 7934.33 Intake: Intake, IV Titration 535.749 2698.33 Amount D5-0.45% NaCl with KCl 150 1050 20Meq/l 1,000 ml @ 150 mls/hr IV .Q6H40M [facility] Rx# :[id number] Insulin Regular 100 unit 31.275 7.33 In Sodium Chloride 0.9% 100 ml @ 0.1 UNITS/KG/HR 7.33 mls/hr IV .[id number] [facility] Rx#:[id number] Output: Urine 400 Other: Voiding Method Urinal # Voids 1 1 Weight 72.575 kg 72.575 kg 72.575 kg Results CBC & Chem 7: 06/19/24 11:46 06/19/24 11:46 Labs: Abnormal Lab Results - Last 24 Hours (Table) 06/18/24 06/18/24 06/18/24 Range/Units 21:50 21:50 21:50 RBC 6.77 H (4.40-5.60) 10*6/uL Hgb 19.7 H* (13.0-17.0) g/dL Hct 56.2 H (39.6-50.0) % Immature Gran # 0.06 H (0.00-0.04) 10*3/uL Lymphocytes # 0.45 L (0.90-5.00) 10*3/uL Eosinophils # 0.00 L (0.04-0.35) 10*3/uL VBG pH 7.18 L* (7.31-7.41) VBG HCO3 14 L (24-28) mmol/L Sodium 133 L (137-145) mmol/L Potassium 5.5 H (3.5-5.1) mmol/L Chloride 95 L (98-107) mmol/L Carbon Dioxide 9 L* (22-30) mmol/L Creatinine (0.66-1.25) mg/dL Glucose 436 H (74-99) mg/dL POC Glucose (mg/dL) (70-110) mg/dL Calcium 15.6 H* (8.4-10.2) mg/dL Ionized Calcium Gabi (4.5-5.3) mg/dL Phosphorus (2.5-4.5) mg/dL Magnesium (1.6-2.3) mg/dL AST 16 L (17-59) U/L C-Reactive Protein 1.7 H (<1.0) mg/dL Albumin 5.2 H (3.5-5.0) g/dL Urine Protein (Negative) Urine Glucose (UA) (Negative) Urine Ketones (Negative) 06/18/24 06/18/24 06/18/24 Range/Units 22:10 23:22 23:30 RBC (4.40-5.60) 10*6/uL Hgb (13.0-17.0) g/dL Hct (39.6-50.0) % Immature Gran # (0.00-0.04) 10*3/uL Lymphocytes # (0.90-5.00) 10*3/uL Eosinophils # (0.04-0.35) 10*3/uL VBG pH (7.31-7.41) VBG HCO3 (24-28) mmol/L Sodium (137-145) mmol/L Potassium (3.5-5.1) mmol/L Chloride (98-107) mmol/L Carbon Dioxide (22-30) mmol/L Creatinine (0.66-1.25) mg/dL Glucose (74-99) mg/dL POC Glucose (mg/dL) 423 H 465 H (70-110) mg/dL Calcium (8.4-10.2) mg/dL Ionized Calcium Gabi (4.5-5.3) mg/dL Phosphorus (2.5-4.5) mg/dL Magnesium (1.6-2.3) mg/dL AST (17-59) U/L C-Reactive Protein (<1.0) mg/dL Albumin (3.5-5.0) g/dL Urine Protein Trace H (Negative) Urine Glucose (UA) 4+ H (Negative) Urine Ketones 4+ H (Negative) 06/19/24 06/19/24 06/19/24 Range/Units 01:52 03:05 04:09 RBC (4.40-5.60) 10*6/uL Hgb (13.0-17.0) g/dL Hct (39.6-50.0) % Immature Gran # (0.00-0.04) 10*3/uL Lymphocytes # (0.90-5.00) 10*3/uL Eosinophils # (0.04-0.35) 10*3/uL VBG pH (7.31-7.41) VBG HCO3 (24-28) mmol/L Sodium (137-145) mmol/L Potassium (3.5-5.1) mmol/L Chloride (98-107) mmol/L Carbon Dioxide (22-30) mmol/L Creatinine (0.66-1.25) mg/dL Glucose (74-99) mg/dL POC Glucose (mg/dL) 397 H 215 H 175 H (70-110) mg/dL Calcium (8.4-10.2) mg/dL Ionized Calcium Gabi (4.5-5.3) mg/dL Phosphorus (2.5-4.5) mg/dL Magnesium (1.6-2.3) mg/dL AST (17-59) U/L C-Reactive Protein (<1.0) mg/dL Albumin (3.5-5.0) g/dL Urine Protein (Negative) Urine Glucose (UA) (Negative) Urine Ketones (Negative) 06/19/24 06/19/24 06/19/24 Range/Units 04:56 05:07 06:08 RBC (4.40-5.60) 10*6/uL Hgb (13.0-17.0) g/dL Hct (39.6-50.0) % Immature Gran # (0.00-0.04) 10*3/uL Lymphocytes # (0.90-5.00) 10*3/uL Eosinophils # (0.04-0.35) 10*3/uL VBG pH (7.31-7.41) VBG HCO3 (24-28) mmol/L Sodium (137-145) mmol/L Potassium (3.5-5.1) mmol/L Chloride (98-107) mmol/L Carbon Dioxide 17 L (22-30) mmol/L Creatinine 0.62 L (0.66-1.25) mg/dL Glucose 184 H (74-99) mg/dL POC Glucose (mg/dL) 205 H 175 H (70-110) mg/dL Calcium (8.4-10.2) mg/dL Ionized Calcium Gabi 5.8 H (4.5-5.3) mg/dL Phosphorus (2.5-4.5) mg/dL Magnesium 1.4 L (1.6-2.3) mg/dL AST (17-59) U/L C-Reactive Protein (<1.0) mg/dL Albumin (3.5-5.0) g/dL Urine Protein (Negative) Urine Glucose (UA) (Negative) Urine Ketones (Negative) 06/19/24 06/19/24 06/19/24 Range/Units 07:00 08:08 08:08 RBC (4.40-5.60) 10*6/uL Hgb (13.0-17.0) g/dL Hct (39.6-50.0) % Immature Gran # (0.00-0.04) 10*3/uL Lymphocytes # (0.90-5.00) 10*3/uL Eosinophils # (0.04-0.35) 10*3/uL VBG pH (7.31-7.41) VBG HCO3 (24-28) mmol/L Sodium 135 L (137-145) mmol/L Potassium (3.5-5.1) mmol/L Chloride (98-107) mmol/L Carbon Dioxide 20 L (22-30) mmol/L Creatinine 0.50 L (0.66-1.25) mg/dL Glucose 187 H (74-99) mg/dL POC Glucose (mg/dL) 203 H (70-110) mg/dL Calcium (8.4-10.2) mg/dL Ionized Calcium Gabi (4.5-5.3) mg/dL Phosphorus 1.8 L (2.5-4.5) mg/dL Magnesium (1.6-2.3) mg/dL AST (17-59) U/L C-Reactive Protein (<1.0) mg/dL Albumin (3.5-5.0) g/dL Urine Protein (Negative) Urine Glucose (UA) (Negative) Urine Ketones (Negative) 06/19/24 06/19/24 06/19/24 Range/Units 08:08 08:12 09:27 RBC (4.40-5.60) 10*6/uL Hgb (13.0-17.0) g/dL Hct (39.6-50.0) % Immature Gran # (0.00-0.04) 10*3/uL Lymphocytes # (0.90-5.00) 10*3/uL Eosinophils # (0.04-0.35) 10*3/uL VBG pH (7.31-7.41) VBG HCO3 (24-28) mmol/L Sodium 134 L (137-145) mmol/L Potassium (3.5-5.1) mmol/L Chloride (98-107) mmol/L Carbon Dioxide 17 L (22-30) mmol/L Creatinine 0.44 L (0.66-1.25) mg/dL Glucose 185 H (74-99) mg/dL POC Glucose (mg/dL) 159 H 202 H (70-110) mg/dL Calcium (8.4-10.2) mg/dL Ionized Calcium Gabi (4.5-5.3) mg/dL Phosphorus (2.5-4.5) mg/dL Magnesium (1.6-2.3) mg/dL AST (17-59) U/L C-Reactive Protein (<1.0) mg/dL Albumin (3.5-5.0) g/dL Urine Protein (Negative) Urine Glucose (UA) (Negative) Urine Ketones (Negative) 06/19/24 06/19/24 06/19/24 Range/Units 10:05 11:04 11:46 RBC (4.40-5.60) 10*6/uL Hgb (13.0-17.0) g/dL Hct (39.6-50.0) % Immature Gran # (0.00-0.04) 10*3/uL Lymphocytes # 0.68 L (0.90-5.00) 10*3/uL Eosinophils # (0.04-0.35) 10*3/uL VBG pH (7.31-7.41) VBG HCO3 (24-28) mmol/L Sodium (137-145) mmol/L Potassium (3.5-5.1) mmol/L Chloride (98-107) mmol/L Carbon Dioxide (22-30) mmol/L Creatinine (0.66-1.25) mg/dL Glucose (74-99) mg/dL POC Glucose (mg/dL) 185 H 183 H (70-110) mg/dL Calcium (8.4-10.2) mg/dL Ionized Calcium Gabi (4.5-5.3) mg/dL Phosphorus (2.5-4.5) mg/dL Magnesium (1.6-2.3) mg/dL AST (17-59) U/L C-Reactive Protein (<1.0) mg/dL Albumin (3.5-5.0) g/dL Urine Protein (Negative) Urine Glucose (UA) (Negative) Urine Ketones (Negative) 06/19/24 06/19/24 06/19/24 Range/Units 11:46 12:10 12:59 RBC (4.40-5.60) 10*6/uL Hgb (13.0-17.0) g/dL Hct (39.6-50.0) % Immature Gran # (0.00-0.04) 10*3/uL Lymphocytes # (0.90-5.00) 10*3/uL Eosinophils # (0.04-0.35) 10*3/uL VBG pH (7.31-7.41) VBG HCO3 (24-28) mmol/L Sodium 133 L (137-145) mmol/L Potassium (3.5-5.1) mmol/L Chloride (98-107) mmol/L Carbon Dioxide 21 L (22-30) mmol/L Creatinine 0.48 L (0.66-1.25) mg/dL Glucose 160 H (74-99) mg/dL POC Glucose (mg/dL) 160 H 181 H (70-110) mg/dL Calcium (8.4-10.2) mg/dL Ionized Calcium Gabi (4.5-5.3) mg/dL Phosphorus 1.4 L (2.5-4.5) mg/dL Magnesium (1.6-2.3) mg/dL AST (17-59) U/L C-Reactive Protein (<1.0) mg/dL Albumin (3.5-5.0) g/dL Urine Protein (Negative) Urine Glucose (UA) (Negative) Urine Ketones (Negative) Thrombosis Risk Factor Assmnt - Choose All That Apply Any of the Below Risk Factors Present?: No Other Risk Factors: No Other congenital or acquired thrombophilia - If yes, enter type in comment: No Thrombosis Risk Factor Assessment Level: Very Low Risk
[2024-06-19] MEDS: INSULIN GLARGINE (LANTUS) 100 UNIT/ML SYR SQ SCH (14:09)
[2024-06-19 14:13] LABS: Glucose,Whole Blood 120 mg/dL (70-110)
[2024-06-19] MEDS: levETIRAcetam 500 MG TAB PO SCH (14:19)
[2024-06-19 15:02] LABS: Glucose,Whole Blood 113 mg/dL (70-110)
[2024-06-19] MEDS: ENOXAPARIN 40 MG/0.4 ML SYRINGE SQ SCH (15:15)
[2024-06-19] MEDS: ONDANSETRON 4 MG/2 ML VIAL IVP PRN (15:21)
[2024-06-19] MEDS ORDERED: Phosphorus Replacement Protoco 1 EACH MISC MISCELLANE PRN (16:41)
[2024-06-19] MEDS: SODIUM PHOSPHATE 30 MMOL in DEXTROSE 5% IN WATER 250 ML IVPB ONE (17:13)
[2024-06-19 17:33] LABS: Glucose,Whole Blood 230 mg/dL (70-110)
[2024-06-19] MEDS: INSULIN LISPRO (HumaLOG) 100 UNIT/ML 10 mL VL SQ SCH (17:36)
[2024-06-19 20:01] LABS: Glucose,Whole Blood 279 mg/dL (70-110)
[2024-06-19] MEDS: SYMBICORT 160-4.5 MCG INHALER INHALATION SCH (20:39)
[2024-06-20] MEDS: SODIUM PHOSPHATE 15 MMOL in DEXTROSE 5% IN WATER 250 ML IVPB ONE (00:57)
[2024-06-20 06:23] LABS: Glucose,Whole Blood 212 mg/dL (70-110)
[2024-06-20 07:00] LABS: HCT 42.7 % (39.6-50.0); MCH 29.2 pg (27.0-32.0); MCHC 35.1 g/dL (32.0-37.0); MCV 83.2 fL (80.0-97.0); Mean Platelet Volume 10.2 fL (9.5-12.2); Platelet Count 195 10*3/uL (140-440); RBC 5.13 10*6/uL (4.40-5.60); RDW 13.1 % (11.5-14.5); WBC 4.38 10*3/uL (4.50-10.00)
[2024-06-20 07:20] LABS: African American GFR (CKD) >90 (>60 ml/min/1.73 sqM); Anion Gap 8 mmol/L; Blood Urea Nitrogen 7 mg/dL (9-20); Calcium 8.4 mg/dL (8.4-10.2); Carbon Dioxide 23 mmol/L (22-30); Chloride 101 mmol/L (98-107); Glucose 185 mg/dL (74-99); Magnesium 1.4 mg/dL (1.6-2.3); Non-African American GFR(CKD) >90 (>60 ml/min/1.73 sqM); Phosphorus 2.1 mg/dL (2.5-4.5); Potassium 3.1 mmol/L (3.5-5.1); Sodium 132 mmol/L (137-145)
[2024-06-20] MEDS: ATORVASTATIN 20 MG TAB PO SCH (08:06)
[2024-06-20] MEDS: MAGNESIUM SULFATE-D5W PMX 1 GM in DEXTROSE/WATER 1 100ML.BAG IVPB SCH (08:06)
[2024-06-20] MEDS: POTASSIUM CHLORIDE ER 20 MEQ TAB.ER PO SCH (08:06)
[2024-06-20] MEDS: lisinopriL 5 MG TAB PO SCH (08:06)
[2024-06-20] MEDS ORDERED: predniSONE 20 MG TAB PO SCH (09:00)
[2024-06-20] MEDS ORDERED: lisinopriL 10 MG TAB PO SCH (09:00)
[2024-06-20] MEDS: predniSONE 10 MG TAB PO SCH (09:09)
[2024-06-20 11:13] LABS: Glucose,Whole Blood 308 mg/dL (70-110)
--- NOTE | 2024-06-20 11:43 | P.PN ---
Subjective Progress Note Date: 06/20/24 Principal diagnosis: Acute diabetic ketoacidosis Patient is a 34-year-old -Green[place] male presents to the emergency department last night with presentation of DKA. The patient himself cannot provide information. No family currently present. According to ER documentation, patient receives most of his care in the [place] area. Reports of recently being diagnosed with pulmonary sarcoidosis, unclear if extrathoracic involvement or previous biopsy. Currently, on systemic steroids on outpatient basis. He has been taking metformin for high blood sugars. Is established with an out of town community midwife Fátima Spivey out of [place], [place]. Per ER record, had a complicated stay at [facility]. May have had hemorrhagic stroke. He has previously been started on Keppra. He has an appointment with a neurologist June 25. We are going to request the medical records. Presented with a chief complaint of intractable nausea and vomiting. Blood glucose elevated at 465 serum bicarb 9, anion gap 29, urine ketone positive. VBG with a pH of 7.18, pCO2 38. He has been started on the DKA protocol. Also, calcium was critically elevated at 15.6. Did receive a dose of calcitonin in the ED. Clinically appears dehydrated. Remaining lab work including a WBC count of 8.2, hemoglobin 19.7, hematocrit 56.2, platelets 315. CMP: Sodium 133, potassium 5.5, chloride 95, serum bicarb 9, anion gap 29, BUN 15, creatinine 0.85, glucose is currently 436. LFTs not elevated. Amylase 50 and lipase 162. EKG: Sinus tachycardia, rate 141 bpm, left axis deviation. No acute ischemic changes. Currently being evaluated in the emergency department. He is lethargic and a poor historian. No further nausea or vomiting. No signs of distress. Insulin infusing at 7.3 units/hr. Normal saline infusing at 200 mL/h. Most recent [id number] glucose 215. Current vital signs: Temperature 97.9 F, heart rate 133 bpm, blood pressure 147/112 mmHg, nontachypneic, SpO2 100% on 2 L/min nasal cannula. Patient was seen today on 06/20/2024, patient is doing much better today, awake, o n room air, in no distress. Labs were reviewed, his DKA has resolved. Patient is known to have history of sarcoidosis, and his prednisone has been tapered down from 80 mg and has been on 20 mg daily for the last month according to the patient. Today I am suggesting we taper the prednisone down to 10 mg daily maintenance until he follows up with his community midwife in [place]. Presently asymptomatic patient is already on Lantus insulin and NovoLog insulin, sugar is under control, the anion gap closed, and I believe the patient could be considered for discharge home and follow-up with his primary care physician and community midwife on outpatient basis. CBC is normal electrolytes showed low potas sium of 3.1 renal profile is normal, calcium is 8.4. Objective - Vital Signs Vital signs: Vital Signs Temp 98.1 F 06/20/24 08:00 Pulse 124 H 06/20/24 08:00 Resp 20 06/20/24 08:00 BP 115/85 06/20/24 08:00 Pulse Ox 97 06/20/24 08:00 FiO2 Intake & Output 06/19/24 06/20/24 06/20/24 18:59 06:59 18:59 Intake Total 2173.017 4660 275 Output Total 450 1550 500 Balance 8534.642 1391 -225 Weight 72.575 kg 68.9 kg Intake: IV 225 1075 275 Magnesium Sulfate-D5w Pmx 200 1 gm In Dextrose/Water 1 100ml.bag @ 100 mls/hr IVPB Q1H [facility] Rx#: [id number] Sodium Chloride 0.9% 1, 225 825 75 000 ml @ 75 mls/hr IV . [id number] [facility] Rx#:[id number] Sodium Phosphate 30 mmol 250 In Dextrose 5% in Water 250 ml @ 65 mls/hr IVPB ONCE ONE Rx#:[id number] Intake, IV Titration 1259.251 250 Amount D5-0.45% NaCl with KCl 1200 20Meq/l 1,000 ml @ 150 mls/hr IV .Q6H40M [facility] Rx# :[id number] Insulin Regular 100 unit 59.251 In Sodium Chloride 0.9% 100 ml @ 0.1 UNITS/KG/HR 7.33 mls/hr IV .[id number] [facility] Rx#:[id number] Sodium Phosphate 15 mmol 250 In Dextrose 5% in Water 250 ml @ 127.5 mls/hr IVPB ONCE ONE Rx#: [id number] Oral 1440 Output: Urine 450 1550 500 Other: Voiding Method Urinal Urinal # Voids 1 1 - Exam GENERAL EXAM: Lethargic, 34-year old -Green[place]ic male, in no apparent distress. On room air HEAD: Normocephalic and atraumatic EYES: Normal reaction of pupils, equal size. NOSE: Clear with pink turbinates. THROAT: No erythema or exudates. NECK: No masses, no JVD. CHEST: No chest wall deformity. LUNGS: Equal air entry with no crackles, wheeze, rhonchi or dullness. CVS: S1 and S2 normal with no audible murmur, regular rhythm. No extra heart sounds ABDOMEN: No hepatosplenomegaly, active bowel sounds, no guarding or rigidity. SKIN: No rashes. No obvious cutaneous lesions CENTRAL NERVOUS SYSTEM: Alert oriented x 3 no focal deficit EXTREMITIES: No clubbing edema or cyanosis - Labs CBC & Chem 7: 06/20/24 06:48 06/20/24 06:48 Labs: Abnormal Lab Results - Last 24 Hours (Table) 06/19/24 06/19/24 06/19/24 Range/Units 04:56 11:46 11:46 WBC (4.50-10.00) 10*3/uL Lymphocytes # 0.68 L (0.90-5.00) 10*3/uL Sodium 133 L (137-145) mmol/L Potassium (3.5-5.1) mmol/L Carbon Dioxide 21 L (22-30) mmol/L BUN (9-20) mg/dL Creatinine 0.48 L (0.66-1.25) mg/dL Glucose 160 H (74-99) mg/dL POC Glucose (mg/dL) (70-110) mg/dL Phosphorus 1.4 L (2.5-4.5) mg/dL Magnesium (1.6-2.3) mg/dL PTH Intact 6.0 L (14.0-72.0) pg/mL 06/19/24 06/19/24 06/19/24 Range/Units 12:10 12:59 14:12 WBC (4.50-10.00) 10*3/uL Lymphocytes # (0.90-5.00) 10*3/uL Sodium (137-145) mmol/L Potassium (3.5-5.1) mmol/L Carbon Dioxide (22-30) mmol/L BUN (9-20) mg/dL Creatinine (0.66-1.25) mg/dL Glucose (74-99) mg/dL POC Glucose (mg/dL) 160 H 181 H 120 H (70-110) mg/dL Phosphorus (2.5-4.5) mg/dL Magnesium (1.6-2.3) mg/dL PTH Intact (14.0-72.0) pg/mL 06/19/24 06/19/24 06/19/24 Range/Units 15:01 17:32 19:59 WBC (4.50-10.00) 10*3/uL Lymphocytes # (0.90-5.00) 10*3/uL Sodium (137-145) mmol/L Potassium (3.5-5.1) mmol/L Carbon Dioxide (22-30) mmol/L BUN (9-20) mg/dL Creatinine (0.66-1.25) mg/dL Glucose (74-99) mg/dL POC Glucose (mg/dL) 113 H 230 H 279 H (70-110) mg/dL Phosphorus (2.5-4.5) mg/dL Magnesium (1.6-2.3) mg/dL PTH Intact (14.0-72.0) pg/mL 06/19/24 06/20/24 06/20/24 Range/Units 23:49 06:22 06:48 WBC (4.50-10.00) 10*3/uL Lymphocytes # (0.90-5.00) 10*3/uL Sodium 132 L (137-145) mmol/L Potassium 3.1 L (3.5-5.1) mmol/L Carbon Dioxide (22-30) mmol/L BUN 7 L (9-20) mg/dL Creatinine 0.60 L (0.66-1.25) mg/dL Glucose 185 H (74-99) mg/dL POC Glucose (mg/dL) 212 H (70-110) mg/dL Phosphorus 2.2 L 2.1 L (2.5-4.5) mg/dL Magnesium 1.4 L (1.6-2.3) mg/dL PTH Intact (14.0-72.0) pg/mL 06/20/24 06/20/24 Range/Units 06:48 11:11 WBC 4.38 L (4.50-10.00) 10*3/uL Lymphocytes # (0.90-5.00) 10*3/uL Sodium (137-145) mmol/L Potassium (3.5-5.1) mmol/L Carbon Dioxide (22-30) mmol/L BUN (9-20) mg/dL Creatinine (0.66-1.25) mg/dL Glucose (74-99) mg/dL POC Glucose (mg/dL) 308 H (70-110) mg/dL Phosphorus (2.5-4.5) mg/dL Magnesium (1.6-2.3) mg/dL PTH Intact (14.0-72.0) pg/mL Assessment and Plan Assessment: Impression: Acute diabetic ketoacidosis; resolved Anion gap metabolic acidosis, resolved Intractable nausea and vomiting and volume depletion, resolved Severe hypercalcemia, resolved with hydration mostly Sinus tachycardia, resolved Hypertension, under control Reported history of hemorrhagic stroke Reported history of pulmonary sarcoidosis, on prednisone taper Recommendation: Continue present supportive care measures Continue insulin as per Accu-Cheks and continue Lantus insulin Change prednisone dose to 10 mg daily maintenance until he follows up with his community midwife I will clear the patient for discharge if cleared by other consultants. Time with Patient: Less than 30
--- NOTE | 2024-06-20 16:16 | P.PN ---
Subjective Patient is seen for follow-up for hypercalcemia. He was admitted with DKA and is currently off of insulin drip. Tolerating oral intake Plans for possible discharge today. Serum calcium is 8.4 today. Maintained on prednisone for sarcoidosis. Objective - Vital Signs Vital signs: Vital Signs Temp 98.4 F 06/20/24 14:00 Pulse 123 H 06/20/24 14:00 Resp 20 06/20/24 14:00 BP 112/71 06/20/24 14:00 Pulse Ox 100 06/20/24 14:00 FiO2 Intake & Output 06/19/24 06/20/24 06/20/24 18:59 06:59 18:59 Intake Total 2661.540 8548 275 Output Total 450 1550 900 Balance 6879.038 3248 -625 Weight 72.575 kg 68.9 kg Intake: IV 225 1075 275 Magnesium Sulfate-D5w Pmx 200 1 gm In Dextrose/Water 1 100ml.bag @ 100 mls/hr IVPB Q1H [facility] Rx#: [id number] Sodium Chloride 0.9% 1, 225 825 75 000 ml @ 75 mls/hr IV . [id number] [facility] Rx#:[id number] Sodium Phosphate 30 mmol 250 In Dextrose 5% in Water 250 ml @ 65 mls/hr IVPB ONCE ONE Rx#:[id number] Intake, IV Titration 1259.251 250 Amount D5-0.45% NaCl with KCl 1200 20Meq/l 1,000 ml @ 150 mls/hr IV .Q6H40M [facility] Rx# :[id number] Insulin Regular 100 unit 59.251 In Sodium Chloride 0.9% 100 ml @ 0.1 UNITS/KG/HR 7.33 mls/hr IV .[id number] [facility] Rx#:[id number] Sodium Phosphate 15 mmol 250 In Dextrose 5% in Water 250 ml @ 127.5 mls/hr IVPB ONCE ONE Rx#: [id number] Oral 1440 Output: Urine 450 1550 900 Other: Voiding Method Urinal Urinal # Voids 1 1 - Exam Patient is awake, comfortable, no acute distress Examination of the heart S1 and S2 Examination of the lungs bilateral breath sounds are heard Abdomen is soft nontender Examination of lower extremities showed no evidence of edema TALENT MANAGEMENT SPECIALIST exam grossly intact - Labs CBC & Chem 7: 06/20/24 06:48 06/20/24 06:48 Labs: Abnormal Lab Results - Last 24 Hours (Table) 06/19/24 06/19/24 06/19/24 Range/Units 02:00 17:32 19:59 WBC (4.50-10.00) 10*3/uL Sodium (137-145) mmol/L Potassium (3.5-5.1) mmol/L BUN (9-20) mg/dL Creatinine (0.66-1.25) mg/dL Glucose (74-99) mg/dL POC Glucose (mg/dL) 230 H 279 H (70-110) mg/dL Hemoglobin A1c (<=6.0) % Phosphorus (2.5-4.5) mg/dL Magnesium (1.6-2.3) mg/dL Vit D 1,25-Dihydroxy 14.7 L (19.9-79.3) pg/mL 06/19/24 06/20/24 06/20/24 Range/Units 23:49 06:22 06:48 WBC (4.50-10.00) 10*3/uL Sodium 132 L (137-145) mmol/L Potassium 3.1 L (3.5-5.1) mmol/L BUN 7 L (9-20) mg/dL Creatinine 0.60 L (0.66-1.25) mg/dL Glucose 185 H (74-99) mg/dL POC Glucose (mg/dL) 212 H (70-110) mg/dL Hemoglobin A1c (<=6.0) % Phosphorus 2.2 L 2.1 L (2.5-4.5) mg/dL Magnesium 1.4 L (1.6-2.3) mg/dL Vit D 1,25-Dihydroxy (19.9-79.3) pg/mL 06/20/24 06/20/24 06/20/24 Range/Units 06:48 06:48 11:11 WBC 4.38 L (4.50-10.00) 10*3/uL Sodium (137-145) mmol/L Potassium (3.5-5.1) mmol/L BUN (9-20) mg/dL Creatinine (0.66-1.25) mg/dL Glucose (74-99) mg/dL POC Glucose (mg/dL) 308 H (70-110) mg/dL Hemoglobin A1c 15.2 H (<=6.0) % Phosphorus (2.5-4.5) mg/dL Magnesium (1.6-2.3) mg/dL Vit D 1,25-Dihydroxy (19.9-79.3) pg/mL Assessment and Plan Assessment: 1. Hypercalcemia associated with excessive use of Tums recently and underlying history of sarcoidosis, currently improved. 2. DKA maintained on insulin drip and IV fluids, blood sugar now around 183. 3. Anion gap metabolic acidosis from DKA 4. Hypophosphatemia from correction of DKA and poor nutritional intake 5. Recent diagnosis of pulmonary sarcoidosis, patient was maintained on prednisone prior to admission. Plan: Stable for discharge from nephrology standpoint. Follow-up on calcium levels post discharge Agree with decreasing dose of prednisone.
[2024-06-20 16:20] LABS: Glucose,Whole Blood 246 mg/dL (70-110)
[2024-06-20 19:44] LABS: Glucose,Whole Blood 300 mg/dL (70-110)
--- NOTE | 2024-06-21 05:23 | P.DS ---
Providers Date of admission: 06/19/24 04:37 Expected date of discharge: 06/20/24 Attending physician: Spencer Gregorio Consults: 06/19/24 03:49 Consult Physician Urgent Consulting Provider: Mary Jo Ramos Consult Reason/Comments: hypercalcemia Do you want consulting provider notified?: Yes 06/19/24 04:34 Consult Physician Stat Consulting Provider: Rhiannon Murray Reason/Comments: DKA. Hypercalcemia. Sarcoidosis Do you want consulting provider notified?: Already Contacted Primary care physician: Stated None Hospital Course: Final diagnosis -Diabetic ketoacidosis: Most likely urinary probably precipitated by prednisone which he takes for sarcoidosis. Hemoglobin A1c is 15.2 -Hypercalcemia secondary to sarcoidosis and dehydration from DKA -Sinus tachycardia likely secondary to DKA - History of hemorrhagic stroke in the past - Hyperlipidemia - Hypertension GI prophylaxis DVT prophylaxis Full code Discharge disposition Patient is being discharged in a stable condition with guarded prognosis to home. Patient will follow-up with Dr. [place] Gregorio in the outpatient setting upon discharge. Patient is to continue with insulins and recommend outpatient follow-up with nephrology as well as endocrine as scheduled. Total time taken is greater than 35 minutes. Hospital course 34-year-old male is admitted for DKA patient did not provide any history to me patient had a history of hemorrhagic stroke in the past since then patient is minimally verbal but does talk to his family members. Patient also has history of sarcoidosis for which patient is on prednisone patient is presently admitted for diabetic ketoacidosis with anion gap going up to 29. Blood glucose is highly elevated to 436 and patient is on metformin in the outpatient setting. Hemoglobin A1c is noted to be 15.2 and will be requiring insulin on discharge. Patient will need education regarding this as patient has never self injected. Patient will need close outpatient follow-up to establish with a primary care provider as well as endocrine and nephrology outpatient. Patient is maintained on 20 mg of prednisone daily and will continue. Currently no reports of chest pain, shortness of breath, or palpitations. Patient is afebrile. No reports of nausea or vomiting and patient is tolerating diet. Patient will be discharged home today. PHYSICAL EXAMINATION: GENERAL: This is a 34-year-old male who is awake, alert and oriented x 3, thin built, appears older than stated age HEENT: Pupils are round and equally reacting to light. EOMI. No scleral icterus. No conjunctival pallor. Normocephalic, atraumatic. No pharyngeal erythema. No thyromegaly. CARDIOVASCULAR: S1 and S2 muffled PULMONARY: Chest is clear to auscultation, no wheezing or crackles. ABDOMEN: Soft, thin. Nontender, nondistended, normoactive bowel sounds. No palpable organomegaly. MUSCULOSKELETAL: No joint swelling or deformity. EXTREMITIES: No cyanosis, clubbing, or pedal edema. NEUROLOGICAL: Gross neurological examination did not reveal any focal deficits. SKIN: No rashes. Please refer to medication reconciliation sheet for a list of medications. The impression and plan of care has been dictated by Rachel Guillen, Nurse Practitioner as directed. Dr. Gee MD I have performed a history and examination and MDM of this patient, discussed the same with the dictator, and agree with the dictator's assessment and plan as written ,documented as a scribe. Based on total visit time, I have performed more than 50% of the visit. Patient Condition at Discharge: Stable Plan - Discharge Summary Discharge Rx Participant: Yes New Discharge Prescriptions: New Knjto-Xux-Fnxk 280-160-250 mg [Neutra-Phos Packet] 1 each PO TID #90 packet INSULIN LISPRO (HumaLOG) [HumaLOG] 10 unit SQ ACHS 30 Days #5 each Insulin Glargine (Lantus) [Lantus Vial] 20 unit SQ DAILY@0700 30 Days #4 each Acetaminophen Tab [Tylenol] 650 mg PO Q4HR PRN tab PRN Reason: Fever And/Or Mild Pain lisinopriL [Zestril] 5 mg PO DAILY #30 tab Pantoprazole [Protonix] 40 mg PO DAILY #30 tab Continue predniSONE [Deltasone] 20 mg PO DAILY Simvastatin 40 mg PO DAILY metFORMIN HCL 500 mg PO BID levETIRAcetam [Keppra] 500 mg PO BID Budesonide-Formot 160-4.5 Mcg [Symbicort 160-4.5 Mcg Inhaler] 2 puff INHALATION RT-BID Discharge Medication List Budesonide-Formot 160-4.5 Mcg [Symbicort 160-4.5 Mcg Inhaler] 2 puff INHALATION RT-BID 06/19/24 [History] Simvastatin 40 mg PO DAILY 06/19/24 [History] levETIRAcetam [Keppra] 500 mg PO BID 06/19/24 [History] metFORMIN HCL 500 mg PO BID 06/19/24 [History] predniSONE [Deltasone] 20 mg PO DAILY 06/19/24 [History] Acetaminophen Tab [Tylenol] 650 mg PO Q4HR PRN tab 06/20/24 [Rx] INSULIN LISPRO (HumaLOG) [HumaLOG] 10 unit SQ ACHS 30 Days #5 each 06/20/24 [Rx] Insulin Glargine (Lantus) [Lantus Vial] 20 unit SQ DAILY@0700 30 Days #4 each 06/20/24 [Rx] Pantoprazole [Protonix] 40 mg PO DAILY #30 tab 06/20/24 [Rx] Mwmeg-Oku-Hgzt 280-160-250 mg [Neutra-Phos Packet] 1 each PO TID #90 packet 06/20/24 [Rx] lisinopriL [Zestril] 5 mg PO DAILY #30 tab 06/20/24 [Rx] Follow up Appointment(s)/Referral(s): Mary Jo Ramos MD [STAFF PHYSICIAN] - 1 Week Justin Nagel MD [REFERRING] - 1 Week [facility] [NON-STAFF] - 1 Week [facility] [NON-STAFF] - 1 Week Danisha Ryan MD [STAFF PHYSICIAN] - 1 Week Ambulatory/Diagnostic Orders: Comprehensive Metabolic Panel [LAB.AMB] Time Frame: 3 Days, Location: None Selected Patient Instructions/Handouts: Diabetic Ketoacidosis (DC), Type 1 Diabetes in Adults: New Diagnosis (GEN), Hypoglycemia in a Person with Diabetes (DC), Basic Carbohydrate Counting (DC), Managing Diabetes During Sick Days (DC), Diabetic Foot Ulcers (DC), Diabetes and Exercise (DC) Activity/Diet/Wound Care/Special Instructions: Activity limited until follow-up Follow-up with primary care provider on discharge to establish Follow-up with endocrine outpatient Follow-up with nephrology outpatient Continue taking medications as prescribed Follow diabetic diet Repeat labs in the next 2 to 3 days Continue with sliding scale before meals and at bedtime Monitor Accu-Cheks 4 times daily and keep a diary of all readings for primary and endocrine follow-up NovoLog sliding scale 0-150 equals 0 units 151-200 equals 2 units 201-250 equals 4 units 251-300 equals 6 units 301-350 equals 8 units 351-400 equals 10 units Please notify provider if blood sugar is 400 or above Continue with long-acting insulin as well Discharge/Stand Alone Forms: Area PCPs Discharge Disposition: HOME SELF-CARE
[2024-06-21 06:14] LABS: HCT 40.1 % (39.6-50.0); MCH 29.2 pg (27.0-32.0); MCHC 34.9 g/dL (32.0-37.0); MCV 83.7 fL (80.0-97.0); Platelet Count 199 10*3/uL (140-440); RBC 4.79 10*6/uL (4.40-5.60); RDW 12.9 % (11.5-14.5); WBC 3.23 10*3/uL (4.50-10.00)
[2024-06-21 06:32] LABS: Glucose,Whole Blood 201 mg/dL (70-110)
[2024-06-21 06:47] LABS: African American GFR (CKD) >90 (>60 ml/min/1.73 sqM); Anion Gap 7 mmol/L; Blood Urea Nitrogen 6 mg/dL (9-20); Calcium 8.9 mg/dL (8.4-10.2); Carbon Dioxide 30 mmol/L (22-30); Chloride 96 mmol/L (98-107); Glucose 206 mg/dL (74-99); Magnesium 1.4 mg/dL (1.6-2.3); Non-African American GFR(CKD) >90 (>60 ml/min/1.73 sqM); Phosphorus 2.9 mg/dL (2.5-4.5); Potassium 3.1 mmol/L (3.5-5.1); Sodium 133 mmol/L (137-145)
[2024-06-21] MEDS: POTASSIUM CHLORIDE ER 20 MEQ TAB.ER PO SCH (07:01)
[2024-06-21] MEDS: MAGNESIUM SULFATE-D5W PMX 1 GM in DEXTROSE/WATER 1 100ML.BAG IVPB SCH (07:01)
[2024-06-21 08:59] VITALS: BP 117/75; PULSE 79; RESP 14; TEMP 98
[2024-06-21] MEDS: POTASSIUM CHLORIDE ER 20 MEQ TAB.ER PO STA (09:42)
--- NOTE | 2024-06-21 11:40 | P.PN ---
Subjective Progress Note Date: 06/21/24 Principal diagnosis: Acute diabetic ketoacidosis Patient is a 34-year-old -[place] male presents to the emergency department last night with presentation of DKA. The patient himself cannot provide information. No family currently present. According to ER documentation, patient receives most of his care in the [place] area. Reports of recently being diagnosed with pulmonary sarcoidosis, unclear if extrathoracic involvement or previous biopsy. Currently, on systemic steroids on outpatient basis. He has been taking metformin for high blood sugars. Is established with an out of town certified fraud examiner Fátima Spivey out of [place], [place]. Per ER record, had a complicated stay at [facility]. May have had hemorrhagic stroke. He has previously been started on Keppra. He has an appointment with a neurologist June 25. We are going to request the medical records. Presented with a chief complaint of intractable nausea and vomiting. Blood glucose elevated at 465 serum bicarb 9, anion gap 29, urine ketone positive. VBG with a pH of 7.18, pCO2 38. He has been started on the DKA protocol. Also, calcium was critically elevated at 15.6. Did receive a dose of calcitonin in the ED. Clinically appears dehydrated. Remaining lab work including a WBC count of 8.2, hemoglobin 19.7, hematocrit 56.2, platelets 315. CMP: Sodium 133, potassium 5.5, chloride 95, serum bicarb 9, anion gap 29, BUN 15, creatinine 0.85, glucose is currently 436. LFTs not elevated. Amylase 50 and lipase 162. EKG: Sinus tachycardia, rate 141 bpm, left axis deviation. No acute ischemic changes. Currently being evaluated in the emergency department. He is lethargic and a poor historian. No further nausea or vomiting. No signs of distress. Insulin infusing at 7.3 units/hr. Normal saline infusing at 200 mL/h. Most recent obusg-dm-daam glucose 215. Current vital signs: Temperature 97.9 F, heart rate 133 bpm, blood pressure 147/112 mmHg, nontachypneic, SpO2 100% on 2 L/min nasal cannula. Patient was seen today on 06/20/2024, patient is doing much better today, awake, o n room air, in no distress. Labs were reviewed, his DKA has resolved. Patient is known to have history of sarcoidosis, and his prednisone has been tapered down from 80 mg and has been on 20 mg daily for the last month according to the patient. Today I am suggesting we taper the prednisone down to 10 mg daily maintenance until he follows up with his certified fraud examiner in [place]. Presently asymptomatic patient is already on Lantus insulin and NovoLog insulin, sugar is under control, the anion gap closed, and I believe the patient could be considered for discharge home and follow-up with his primary care physician and certified fraud examiner on outpatient basis. CBC is normal electrolytes showed low potas sium of 3.1 renal profile is normal, calcium is 8.4. Patient was seen today on 06/21/2024, patient is doing well, remains in the ICU as an overflow, relatively asymptomatic, he had to be educated on the use of insulin yesterday, and there was a delay in his discharge. Today asymptomatic hardly any pulmonary symptoms hemodynamically stable, potassium is a bit low being addressed accordingly. Objective - Vital Signs Vital signs: Vital Signs Temp 98.0 F 06/21/24 08:00 Pulse 79 06/21/24 08:00 Resp 14 06/21/24 08:00 BP 117/75 06/21/24 08:00 Pulse Ox 99 06/21/24 08:00 FiO2 Intake & Output 06/20/24 06/21/24 06/21/24 18:59 06:59 18:59 Intake Total 275 1440 465 Output Total 900 1 425 Balance -625 1439 40 Weight 69.3 kg Intake: IV 275 225 Magnesium Sulfate-D5w Pmx 200 1 gm In Dextrose/Water 1 100ml.bag @ 100 mls/hr IVPB Q1H [facility] Rx#: [id number] Sodium Chloride 0.9% 1, 75 225 000 ml @ 75 mls/hr IV . [id number] [facility] Rx#:[id number] Oral 1440 240 Output: Urine 900 1 425 Other: Voiding Method Urinal Urinal Urinal # Voids 4 1 - Exam GENERAL EXAM: Lethargic, 34-year old -Y[place]i male, in no apparent distress. On room air HEAD: Normocephalic and atraumatic EYES: Normal reaction of pupils, equal size. NOSE: Clear with pink turbinates. THROAT: No erythema or exudates. NECK: No masses, no JVD. CHEST: No chest wall deformity. LUNGS: Equal air entry with no crackles, wheeze, rhonchi or dullness. CVS: S1 and S2 normal with no audible murmur, regular rhythm. No extra heart sounds ABDOMEN: No hepatosplenomegaly, active bowel sounds, no guarding or rigidity. SKIN: No rashes. No obvious cutaneous lesions CENTRAL NERVOUS SYSTEM: Alert oriented x 3 no focal deficit EXTREMITIES: No clubbing edema or cyanosis - Labs CBC & Chem 7: 06/21/24 05:24 06/21/24 05:24 Labs: Abnormal Lab Results - Last 24 Hours (Table) 06/19/24 06/20/24 06/20/24 Range/Units 02:00 06:48 16:19 WBC (4.50-10.00) 10*3/uL Sodium (137-145) mmol/L Potassium (3.5-5.1) mmol/L Chloride (98-107) mmol/L BUN (9-20) mg/dL Creatinine (0.66-1.25) mg/dL Glucose (74-99) mg/dL POC Glucose (mg/dL) 246 H (70-110) mg/dL Hemoglobin A1c 15.2 H (<=6.0) % Magnesium (1.6-2.3) mg/dL Vit D 1,25-Dihydroxy 14.7 L (19.9-79.3) pg/mL 06/20/24 06/21/24 06/21/24 Range/Units 19:43 05:24 05:24 WBC 3.23 L (4.50-10.00) 10*3/uL Sodium 133 L (137-145) mmol/L Potassium 3.1 L (3.5-5.1) mmol/L Chloride 96 L (98-107) mmol/L BUN 6 L (9-20) mg/dL Creatinine 0.58 L (0.66-1.25) mg/dL Glucose 206 H (74-99) mg/dL POC Glucose (mg/dL) 300 H (70-110) mg/dL Hemoglobin A1c (<=6.0) % Magnesium 1.4 L (1.6-2.3) mg/dL Vit D 1,25-Dihydroxy (19.9-79.3) pg/mL 06/21/24 Range/Units 06:30 WBC (4.50-10.00) 10*3/uL Sodium (137-145) mmol/L Potassium (3.5-5.1) mmol/L Chloride (98-107) mmol/L BUN (9-20) mg/dL Creatinine (0.66-1.25) mg/dL Glucose (74-99) mg/dL POC Glucose (mg/dL) 201 H (70-110) mg/dL Hemoglobin A1c (<=6.0) % Magnesium (1.6-2.3) mg/dL Vit D 1,25-Dihydroxy (19.9-79.3) pg/mL Assessment and Plan Assessment: Impression: Acute diabetic ketoacidosis; resolved Anion gap metabolic acidosis, resolved Intractable nausea and vomiting and volume depletion, resolved Severe hypercalcemia, resolved with hydration mostly Sinus tachycardia, resolved Hypertension, under control Reported history of hemorrhagic stroke Reported history of pulmonary sarcoidosis, on prednisone taper Recommendation: Cleared for discharge Patient to be discharged on prednisone at 10 mg daily for sarcoidosis Patient to follow-up with his certified fraud examiner in [place] Time with Patient: Less than 30
--- NOTE | 2024-06-21 13:39 | P.PN ---
Subjective Progress Note Date: 06/21/24 Patient is seen for follow-up for hypercalcemia. He was admitted with DKA and is currently off of insulin drip. Tolerating oral intake Plans for possible discharge today. Serum calcium is 8.4 today. Maintained on prednisone for sarcoidosis. Patient is awake, comfortable, no acute distress Examination of the heart S1 and S2 Examination of the lungs bilateral breath sounds are heard Abdomen is soft nontender Examination of lower extremities showed no evidence of edema IMM[employer]RATION LAW[employer]ER exam grossly intact Objective - Vital Signs Vital signs: Vital Signs Temp 98.0 F 06/21/24 08:00 Pulse 79 06/21/24 08:00 Resp 14 06/21/24 08:00 BP 117/75 06/21/24 08:00 Pulse Ox 99 06/21/24 08:00 FiO2 Intake & Output 06/20/24 06/21/24 06/21/24 18:59 06:59 18:59 Intake Total 275 1440 465 Output Total 900 1 425 Balance -625 1439 40 Weight 69.3 kg Intake: IV 275 225 Magnesium Sulfate-D5w Pmx 200 1 gm In Dextrose/Water 1 100ml.bag @ 100 mls/hr IVPB Q1H [facility] Rx#: [id number] Sodium Chloride 0.9% 1, 75 225 000 ml @ 75 mls/hr IV . [id number] [facility] Rx#:[id number] Oral 1440 240 Output: Urine 900 1 425 Other: Voiding Method Urinal Urinal Urinal # Voids 4 1 - Labs CBC & Chem 7: 06/21/24 05:24 06/21/24 05:24 Labs: Abnormal Lab Results - Last 24 Hours (Table) 06/19/24 06/20/24 06/20/24 Range/Units 02:00 06:48 11:11 WBC (4.50-10.00) 10*3/uL Sodium (137-145) mmol/L Potassium (3.5-5.1) mmol/L Chloride (98-107) mmol/L BUN (9-20) mg/dL Creatinine (0.66-1.25) mg/dL Glucose (74-99) mg/dL POC Glucose (mg/dL) 308 H (70-110) mg/dL Hemoglobin A1c 15.2 H (<=6.0) % Magnesium (1.6-2.3) mg/dL Vit D 1,25-Dihydroxy 14.7 L (19.9-79.3) pg/mL 06/20/24 06/20/24 06/21/24 Range/Units 16:19 19:43 05:24 WBC 3.23 L (4.50-10.00) 10*3/uL Sodium (137-145) mmol/L Potassium (3.5-5.1) mmol/L Chloride (98-107) mmol/L BUN (9-20) mg/dL Creatinine (0.66-1.25) mg/dL Glucose (74-99) mg/dL POC Glucose (mg/dL) 246 H 300 H (70-110) mg/dL Hemoglobin A1c (<=6.0) % Magnesium (1.6-2.3) mg/dL Vit D 1,25-Dihydroxy (19.9-79.3) pg/mL 06/21/24 06/21/24 Range/Units 05:24 06:30 WBC (4.50-10.00) 10*3/uL Sodium 133 L (137-145) mmol/L Potassium 3.1 L (3.5-5.1) mmol/L Chloride 96 L (98-107) mmol/L BUN 6 L (9-20) mg/dL Creatinine 0.58 L (0.66-1.25) mg/dL Glucose 206 H (74-99) mg/dL POC Glucose (mg/dL) 201 H (70-110) mg/dL Hemoglobin A1c (<=6.0) % Magnesium 1.4 L (1.6-2.3) mg/dL Vit D 1,25-Dihydroxy (19.9-79.3) pg/mL Assessment and Plan Assessment: 1. Hypercalcemia associated with excessive use of Tums recently and underlying history of sarcoidosis, currently resolved. 2. DKA maintained on insulin drip and IV fluids, blood sugar now around 183. 3. Anion gap metabolic acidosis from DKA 4. Hypophosphatemia from correction of DKA and poor nutritional intake 5. Recent diagnosis of pulmonary sarcoidosis, patient was maintained on prednisone prior to admission. 6. Hypokalemia related to hypomagnesium and insulin Plan: Stable for discharge from nephrology standpoint. Follow-up on calcium levels post discharge Replace potassium and magnesium.
--- NOTE | 2024-06-21 15:43 | P.DS ---
Providers Date of admission: 06/19/24 04:37 Attending physician: Spencer Gregorio Consults: 06/19/24 03:49 Consult Physician Urgent Consulting Provider: Mary Jo Ramos Consult Reason/Comments: hypercalcemia Do you want consulting provider notified?: Yes 06/19/24 04:34 Consult Physician Stat Consulting Provider: Rhiannon Murray Reason/Comments: DKA. Hypercalcemia. Sarcoidosis Do you want consulting provider notified?: Already Contacted Primary care physician: Stated None Hospital Course: Final Diagnosis -Diabetic ketoacidosis: Most likely urinary probably precipitated by prednisone which he takes for sarcoidosis. Hemoglobin A1c is 15.2 -Hypercalcemia secondary to sarcoidosis and dehydration from DKA -Sinus tachycardia likely secondary to DKA - History of hemorrhagic stroke in the past - Hyperlipidemia - Hypertension Discharge Disposition Patient is being discharged in a stable condition with guarded prognosis to home. Patient will follow-up with Dr. [place] Gregorio in the outpatient setting upon discharge. Patient is to continue with insulins and recommend outpatient follow-up with nephrology as well as endocrine as scheduled. Total time taken is greater than 35 minutes. Hospital Course 34-year-old male is admitted for DKA patient did not provide any history to me patient had a history of hemorrhagic stroke in the past since then patient is minimally verbal but does talk to his family members. Patient also has history of sarcoidosis for which patient is on prednisone patient is presently admitted for diabetic ketoacidosis with anion gap going up to 29. Blood glucose is highly elevated to 436 and patient is on metformin in the outpatient setting. Hemoglobin A1c is noted to be 15.2 and will be requiring insulin on discharge. Patient will need education regarding this as patient has never self injected. Patient will need close outpatient follow-up to establish with a primary care provider as well as endocrine and nephrology outpatient. Patient is maintained on 20 mg of prednisone daily and will continue. Currently no reports of chest pain, shortness of breath, or palpitations. Patient is afebrile. No reports of nausea or vomiting and patient is tolerating diet. Patient will be discharged home today. Patient evaluated at the bedside with family for discharge planning. All questions were answered. PHYSICAL EXAMINATION: GENERAL: This is a 34-year-old male who is awake, alert and oriented x 3, thin built, appears older than stated age HEENT: Pupils are round and equally reacting to light. EOMI. No scleral icterus. No conjunctival pallor. Normocephalic, atraumatic. No pharyngeal erythema. No thyromegaly. CARDIOVASCULAR: S1 and S2 muffled PULMONARY: Chest is clear to auscultation, no wheezing or crackles. ABDOMEN: Soft, thin. Nontender, nondistended, normoactive bowel sounds. No palpable organomegaly. MUSCULOSKELETAL: No joint swelling or deformity. EXTREMITIES: No cyanosis, clubbing, or pedal edema. NEUROLOGICAL: Gross neurological examination did not reveal any focal deficits. SKIN: No rashes. Please see medication reconciliation for a list of current medications. Thank you for allowing us to participate in the care of this patient. The impression and plan of care has been dictated by Soumya Reyes Nurse Practitioner as directed. Dr. Gee MD I have performed a history and physical examination and medical decision making of this patient, discussed the same with the dictator, and agree with the dictators assessment and plan as written, documented as a scribe. Based on total visit time, I have performed more than 50% of this visit. Patient Condition at Discharge: Stable Plan - Discharge Summary Discharge Rx Participant: Yes New Discharge Prescriptions: New Acaub-Kpx-Mdni 280-160-250 mg [Neutra-Phos Packet] 1 each PO TID #90 packet predniSONE 10 mg PO DAILY tab Magnesium Oxide [Mag-Oxide] 200 mg PO DAILY #5 tablet INSULIN LISPRO (HumaLOG) [HumaLOG] 10 unit SQ ACHS 30 Days #5 each Insulin Glargine (Lantus) [Lantus Vial] 20 unit SQ DAILY@0700 30 Days #4 each Acetaminophen Tab [Tylenol] 650 mg PO Q4HR PRN tab PRN Reason: Fever And/Or Mild Pain lisinopriL [Zestril] 5 mg PO DAILY #30 tab Pantoprazole [Protonix] 40 mg PO DAILY #30 tab Continue Simvastatin 40 mg PO DAILY metFORMIN HCL 500 mg PO BID levETIRAcetam [Keppra] 500 mg PO BID Budesonide-Formot 160-4.5 Mcg [Symbicort 160-4.5 Mcg Inhaler] 2 puff INHALATION RT-BID Discontinued predniSONE [Deltasone] 20 mg PO DAILY Discharge Medication List Budesonide-Formot 160-4.5 Mcg [Symbicort 160-4.5 Mcg Inhaler] 2 puff INHALATION RT-BID 05/01/25 [History] Simvastatin 40 mg PO DAILY 06/19/24 [History] levETIRAcetam [Keppra] 500 mg PO BID 06/19/24 [History] metFORMIN HCL 500 mg PO BID 06/19/24 [History] Acetaminophen Tab [Tylenol] 650 mg PO Q4HR PRN tab 06/20/24 [Rx] INSULIN LISPRO (HumaLOG) [HumaLOG] 10 unit SQ ACHS 30 Days #5 each 06/20/24 [Rx] Insulin Glargine (Lantus) [Lantus Vial] 20 unit SQ DAILY@0700 30 Days #4 each 06/20/24 [Rx] Pantoprazole [Protonix] 40 mg PO DAILY #30 tab 06/20/24 [Rx] Nxior-Hir-Pxys 280-160-250 mg [Neutra-Phos Packet] 1 each PO TID #90 packet 06/20/24 [Rx] lisinopriL [Zestril] 5 mg PO DAILY #30 tab 06/20/24 [Rx] Magnesium Oxide [Mag-Oxide] 200 mg PO DAILY #5 tablet 06/21/24 [Rx] predniSONE 10 mg PO DAILY tab 06/21/24 [Rx] Follow up Appointment(s)/Referral(s): Mary Jo Ramos MD [STAFF PHYSICIAN] - 1 Week Justin Nagel MD [REFERRING] - 1 Week [facility] [NON-STAFF] - 1 Week [facility] [NON-STAFF] - 1 Week Danisha Ryan MD [STAFF PHYSICIAN] - 1 Week Ambulatory/Diagnostic Orders: Comprehensive Metabolic Panel [LAB.AMB] Time Frame: 3 Days, Location: None Selected Patient Instructions/Handouts: Diabetic Ketoacidosis (DC), Type 1 Diabetes in Adults: New Diagnosis (GEN), Hypoglycemia in a Person with Diabetes (DC), Basic Carbohydrate Counting (DC), Managing Diabetes During Sick Days (DC), Diabetic Foot Ulcers (DC), Diabetes and Exercise (DC) Activity/Diet/Wound Care/Special Instructions: Activity limited until follow-up Follow-up with primary care provider on discharge to establish Follow-up with endocrine outpatient Follow-up with nephrology outpatient Continue taking medications as prescribed Follow diabetic diet Repeat labs in the next 2 to 3 days Continue with sliding scale before meals and at bedtime Monitor Accu-Cheks 4 times daily and keep a diary of all readings for primary and endocrine follow-up NovoLog sliding scale 0-150 equals 0 units 151-200 equals 2 units 201-250 equals 4 units 251-300 equals 6 units 301-350 equals 8 units 351-400 equals 10 units Please notify provider if blood sugar is 400 or above Continue with long-acting insulin as well Discharge/Stand Alone Forms: Area PCPs Discharge Disposition: HOME SELF-CARE
[2024-06-23 10:41] LABS: Glucose,Whole Blood 176 mg/dL (70-110)
== END 2024-06-21 11:05 | disposition home or self-care (01) | DRG 420 ==
LOC: EC 20:29 → 2SICU 06-19 04:37
PROVIDERS: ADMIT Hospitalist; ATTEND Hospitalist
DX: E10.10 Type 1 diabetes mellitus with ketoacidosis without coma (principal); D86.0 Sarcoidosis of lung; E78.5 Hyperlipidemia, unspecified; E83.39 Other disorders of phosphorus metabolism; E83.42 Hypomagnesemia; E83.52 Hypercalcemia; E86.0 Dehydration; E87.6 Hypokalemia; I10 Essential (primary) hypertension; Z79.51 Long term (current) use of inhaled steroids; Z79.52 Long term (current) use of systemic steroids; Z79.84 Long term (current) use of oral hypoglycemic drugs; T38.0X5A Adverse effect of glucocorticoids and synthetic analogues, initial encounter; Z79.899 Other long term (current) drug therapy; Z86.73 Personal history of transient ischemic attack (TIA), and cerebral infarction without residual deficits; Z28.310 Unvaccinated for COVID-19; Z28.21 Immunization not carried out because of patient refusal
CPT/HCPCS: 36415; 71045; 80048; 80051; 80053; 81003; 82009; 82150; 82164; 82330; 82565; 82652; 82803; 82947; 83036; 83690; 83735; 83970; 84100; 84132; 84520; 85025; 85027; 86140; 93005; 94640; 96361; 96365; 96375; 96376; 99285

== ENCOUNTER → 2024-06-18 | Outpatient (CLI) | payer OTHER ==
--- NOTE | 2024-06-18 18:19 | CT ---
EXAMINATION TYPE: CT chest wo con DATE OF EXAM: 06/18/2024 4:36 PM COMPARISON: None CLINICAL INDICATION: Male, 34 years old with history of D86.9 SARCOIDOSIS, UNSPECIFIED R91.8 OTHER NO NSPEC; PHH, sarcoidosis, weakness TECHNIQUE: Multiple axial images were obtained through the chest. Sagittal and coronal reformats were created for review. MIP was performed on a separate workstation. Contrast used: mL of (None if empty) Oral contrast used: (None if empty) CT DLP: 201 mGycm, Automated exposure control for dose reduction was used. FINDINGS: LUNGS/ PLEURA: Scattered reticular nodular opacities bilaterally predominantly involving the upper saw ngs. These are somewhat symmetrical. No focal consolidation, pneumothorax or pleural effusion. AIRWAY: Patent and unremarkable. HEART: Size within normal limits. No significant coronary artery calcifications. MEDIASTINUM: No gross evidence of adenopathy. VASCULATURE: No aortic aneurysm. MUSCULOSKELETAL: No acute osseous abnormalities SOFT TISSUES/LYMPH NODES: Unremarkable. LOWER NECK: No significant findings. UPPER ABDOMEN: No significant findings. IMPRESSION: Scattered reticulonodular opacities which could be compatible with sarcoidosis diagnosis. No lymphadenopathy identified. Consider short-term follow-up CT in 3 months. [facility], , 06/18/2024 6:16 PM
== END | disposition home or self-care (01) ==
LOC: RADCTMAIN 16:10
DX: R91.8 Other nonspecific abnormal finding of lung field (principal); D86.9 Sarcoidosis, unspecified
CPT/HCPCS: 71250

== ENCOUNTER → 2024-08-06 | Outpatient (CLI) | payer OTHER ==
[2024-08-06 16:02] VITALS: BP 140/90; PULSE 107; RESP 18; TEMP 98.3
--- NOTE | 2024-08-06 16:29 | P.SLEEP ---
History of Present Illness DATE: 08/06/2024 CONSULTATION/NEW PATIENT EVALUATION HISTORY OF PRESENT ILLNESS/SLEEP-WAKE EVALUATION: 34-year-old gentleman had b een evaluated in the sleep center for possible obstructive sleep apnea hypopnea syndrome. SLEEP SCHEDULE: Usually sleep schedule from [id number] PM until 68 AM. FALLING ASLEEP: Patient does have difficulties with falling asleep, has TV set in bedroom. DURING SLEEP: Patient sleeps in different positions and wakes up from sleep up to 4 times with nocturia. No history of hypnogogical hallucinations, sleep paralysis, or cataplexy. DURING THE DAY/WAKE STATE: Usually patient does not take naps. Holder sleepiness scale is 8. PAST MEDICAL HISTORY: Hypertension, diabetes, hyperlipidemia, acid reflux, sarcoidosis, right-sided pneumothorax in 2024. PAST SURGICAL HISTORY: Chest tube in 2024 for treatment of pneumothorax on the right side. MEDICATIONS: Please see below. SOCIAL HISTORY: Please see below. FAMILY HISTORY: Please see below. REVIEW OF SYSTEMS: Multiple awakenings from sleep. No fevers. No double vision. No recent chest pain. No shortness of breath. No abdominal pain. No bleeding episodes. No blood in urine. No seizure episodes. PHYSICAL EXAMINATION: GENERAL: A pleasant patient without any distress. VITAL SIGNS: Please see below. HEENT: PERRLA, EOMI. Evaluation of oropharynx showed tongue protrudes midline, low position of soft palate Mallampati 4. NECK: Supple. No JVD. Thyroid is not palpable. 16-1/4 inches in circumference. LUNGS: Clear to percussion and to auscultation. Good air exchange. No wheezing or rhonchi. HEART: S1, S2 regular. No murmurs, gallops or rubs. ABDOMEN: Soft and nontender. Bowel sounds are present. No organomegaly appreciated. EXTREMITIES: No clubbing or cyanosis. GLUE SPREADING MACHINE OPERATOR: Awake, alert, and oriented x3. Cranial nerves 2 to 7 intact. There is no fasciculation or atrophy noted. No focal deficits observed. ASSESSMENT: 1. Multiple awakenings from sleep, extremely low position of soft palate Mallampati 4. Obstructive sleep apnea hypopnea syndrome. 2. Status post recent hemorrhagic CVA in February 2024. 3. Diabetes mellitus. History of steroid-induced hyperglycemia. 4. Sarcoidosis. 5. Status post right-sided pneumothorax. 6 . History of diastolic heart failure 7. Acid reflux. PLAN: 1. Polysomnography for evaluation of patient's breathing during sleep. 2. Following plan after reading sleep study. If patient will need CPAP treatment, to use lowest pressure because of history of pneumothorax. 3. Preferable position during sleep on the side. 4. No driving if patient feels any sleepiness. Patient is aware of civil and criminal liability for unsafe driving. 5. Sleep hygiene with regular sleep time for at least 7.5-8 hours. 6. Watching weight. Thank you very much for referring this patient for consultation. Sincerely, Rohan Alberto MD, PhD, FAASM. Diplomat of [place] [employer], Sleep Medicine Board by [place] [employer] [place] [employer] Gr[employer] K[employer] of [facility] [place] cc: Danisha Ryan MD Past Medical History Past Medical History: Diabetes Mellitus, Hyperlipidemia, Hypertension Additional Past Medical History / Comment(s): Stroke (02/2024), Sarcoidosis (02/2024) History of Any Multi-Drug Resistant Organisms: None Reported Past Surgical History: No Surgical Hx Reported Additional Past Surgical History / Comment(s): chest tube placement in Feb 2024 Past Anesthesia/Blood Transfusion Reactions: No Reported Reaction Past Psychological History: No Psychological Hx Reported Smoking Status: Former smoker Past Alcohol Use History: None Reported Past Drug Use History: None Reported - Past Family History Father History Unknown: Yes Family Medical History: No Reported History Mother Family Medical History: CVA/TIA, Hypertension Additional Family Medical History / Comment(s): grandmother was diabetic Medications and Allergies Home Medications Medication Instructions Recorded Confirmed Type Budesonide-Formot 160-4.5 Mcg 2 puff INHALATION RT-BID 06/19/24 06/19/24 History [Symbicort 160-4.5 Mcg Inhaler] Simvastatin 40 mg PO DAILY 06/19/24 08/06/24 History levETIRAcetam [Keppra] 500 mg PO BID 06/19/24 08/06/24 History metFORMIN HCL 500 mg PO BID 06/19/24 08/06/24 History Acetaminophen Tab [Tylenol] 650 mg PO Q4HR PRN tab 06/20/24 Rx INSULIN LISPRO (HumaLOG) [HumaLOG] 10 unit SQ ACHS 30 Days #5 each 06/20/24 Rx Insulin Glargine (Lantus) [Lantus 20 unit SQ DAILY@0700 30 Days #4 06/20/24 Rx Vial] each Pantoprazole [Protonix] 40 mg PO DAILY #30 tab 06/20/24 08/06/24 Rx Zpwwj-Ssv-Dsmk 280-160-250 mg 1 each PO TID #90 packet 06/20/24 Rx [Neutra-Phos Packet] lisinopriL [Zestril] 5 mg PO DAILY #30 tab 06/20/24 08/06/24 Rx Magnesium Oxide [Mag-Oxide] 200 mg PO DAILY #5 tablet 06/21/24 Rx predniSONE 10 mg PO DAILY tab 06/21/24 08/06/24 Rx Allergies Allergy/AdvReac Type Severity Reaction Status Date / Time No Known Allergies Allergy Verified 06/18/24 21:11 Physical Exam Vitals: Vital Signs Temp Pulse Resp BP Pulse Ox 08/06/24 16:01 98.3 F 107 H 18 140/90 99 Intake and Output 08/06/24 08/06/24 08/06/24 06:59 14:59 22:59 Other: Weight 89.811 kg Sleep Note - Sleep Data ESS Total: 8 - Sleep Note Sleep Note: Temperature: 98.3 F Pulse Rate: 107 Respiratory Rate: 18 Blood Pressure: 140/90 SpO2: 99 Height: 5 ft 9.2 in Weight: 89.811 kg BMI: Neck Circumference: 16.2
== END ==
LOC: 3 N SLEEP 15:36
PROVIDERS: ATTEND Internal Medicine
DX: G47.33 Obstructive sleep apnea (adult) (pediatric) (principal); E11.65 Type 2 diabetes mellitus with hyperglycemia; D86.9 Sarcoidosis, unspecified; K21.9 Gastro-esophageal reflux disease without esophagitis; F12.90 Cannabis use, unspecified, uncomplicated; Z86.73 Personal history of transient ischemic attack (TIA), and cerebral infarction without residual deficits; Z92.240 Personal history of inhaled steroid therapy; Z98.3 Post therapeutic collapse of lung status; Z86.79 Personal history of other diseases of the circulatory system
CPT/HCPCS: 99211

== ENCOUNTER → 2024-08-26 | Outpatient (CLI) | payer OTHER ==
--- NOTE | 2024-08-27 18:12 | MR ---
INDICATION: Patient age:Male; 34 years old; Reason for study: D86.89; PHH. Sarcoidosis of other sites COMPARISON: None. TECHNIQUE: Multi planar, multi sequence imaging was performed through the brain. The patient was then given 8 cc of Gadobutrol intravenously and multi planar, T1 fat-saturation images were obtained. FINDINGS: The ventricular system and basal cisterns appear unremarkable. Age-appropriate cerebral parenchymal v olume. There is increased signal within the posterior limb of the left internal capsule on diffusion weighted imaging. There is corresponding increased FLAIR signal. Diffuse scattered smooth leptomeningeal enhancement throughout the brain with concentration around th e brainstem. There is also involvement of the bilateral cerebellar hemispheres and the bilateral infe rior basal ganglia. Scattered regions a curvilinear blooming artifact consistent with venous engorgem ent with microhemorrhages along the cortical sulci. Largest region measures 1.1 cm within the left te mporal lobe. Additional scattered extensive scattered punctate foci of microhemorrhage throughout the brain. Curvilinear hyperintense T2/FLAIR signal throughout the brainstem with enhancement correlatin g to abnormal enhancing harpooner arteries. Additional increased FLAIR signal within the bitemporal mesial regions. No sizable enhancing parenchymal lesion identified. Intracranial arterial flow voids are maintained. Midline structures show no abnormality. The bone marrow signal is within normal limits. The paranasal sinuses and globes are unremarkable. IMPRESSION: 1. Extensive leptomeningeal enhancement involving the brain. There is concentration around the brains tem. 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 2. Focal region of restricted diffusion within the posterior limb of the left internal capsule concer irma for acute/subacute infarct. Correlate clinically. 3. Extensive regions of prior microhemorrhage related to #1. [facility], , 08/27/2024 6:10 PM [facility], , 08/27/2024 6:10 PM
== END | disposition home or self-care (01) ==
LOC: RADMRIMAIN 20:45
PROVIDERS: ATTEND Psychiatry & Neurology Neurology with Special Qualifications in Child Neurology
DX: D86.89 Sarcoidosis of other sites (principal); G93.89 Other specified disorders of brain
CPT/HCPCS: 70553; A9585

== ENCOUNTER 2024-09-02 19:38 | Outpatient (CLI) | payer OTHER ==
--- NOTE | 2024-09-10 11:43 | P.PCN ---
Description of Procedure: POLYSOMNOGRAPHY REPORT PROCEDURE(S)/DATE(S): Polysomnography 09/02/2024 CLINICAL: Patient has been seen in the sleep center for evaluation of obstructive sleep apnea-hypopnea syndrome. Please see my consultation. Sleep study has been done for evaluation of patient breathing during the sleep. PROCEDURE: The standard montage for clinical polysomnography included the electroencephalogram, the electrooculogram, the mentalis surface electromyography and Lead II cardiography. The respiratory battery consisted of measurements of nasal/buccal air flow, pressure transducer measurements from nose, thoracic and/or abdominal effort and intercostal surface electromyography. Video monitoring has been done to check for any parasomnia events. Nocturnal oxyhemoglobin saturations were obtained by finger oximetry. Step-russ titration with positive airway pressure was utilized to control the respiratory events, if necessary. RESULTS: During the diagnostic sleep study sleep efficiency was decreased to 80.3%. Latency to sleep onset was prolonged to 43.5 min. Sleep architecture showed stage NI was increased to 16.3%, Delta sleep was absent 0%, REM sleep was slightly decreased to 15.6%. Respiratory channel showed 30 obstructive apneas, 2 mixed apneas, 2 central apneas, 509 hypopneas with lowest oxygen level 85%. Total apnea hypopnea index was 109.3. Heart rate was in the range between 96 and 109, average 103. EMG showed 7.9 periodic limb movements per hour with 0.2 micro-arousals per hour. IMPRESSIONS: 1. Extremely severe obstructive sleep apnea hypopnea syndrome. 2. No significant periodic limb movements have been documented. Please see other impressions from consultation PLAN: 1. The patient will have PAP titration for correction of respiratory abnormalities during the sleep. 2. Watching weight . 3. Sleep hygiene with regular time in bed for at least 7-1/2 hours. 4. No driving if feeling sleepiness. Thank you very much for allowing me to participate in the management of your patient. Sincerely, Rohan Alberto MD, PhD, FAASM. Diplomat of [place] [employer], Sleep Medicine Board by [place] [employer] Breastfeeding Program Coordinator of [facility] [place] cc: Hailey Glover
== END 2024-09-03 06:15 | disposition home or self-care (01) ==
LOC: 3 N SLEEP 19:38
PROVIDERS: ATTEND Internal Medicine
DX: G47.33 Obstructive sleep apnea (adult) (pediatric) (principal); F12.90 Cannabis use, unspecified, uncomplicated
CPT/HCPCS: 95810

== ENCOUNTER 2024-09-14 19:33 | Outpatient (CLI) | payer OTHER ==
--- NOTE | 2024-09-19 13:51 | P.PCN ---
Description of Procedure: CLINICAL: Titration with positive air pressure has been done for correction of respiratory abnormalities during sleep. DESCRIPTION OF PROCEDURE: The standard montage for clinical polysomnography included the electroencephalogram, the electrocardiogram, the mentalis surface electromyography and Lead II cardiography. The respiratory battery consisted of measurements of nasal /buccal air flow, pressure transducer measurements from the nose, thoracic and /or abdominal effort and intercostal surface electromyography. Video monitoring has been done to check for any parasomnia events. Nocturnal oxyhemoglobin saturations were obtained by finger oximetry. Step-russ titration with positive airway pressure was utilized to control respiratory events. Raw data of sleep recording has been reviewed and is adequate. RESULTS: Sleep efficiency was decreased to 78.8%. Latency to sleep onset was prolonged to 36.5 minutes.]. Sleep architecture showed stage N1 was practically normal 8.7%, Delta sleep was absent 0%, REM sleep was normal 27.6%. Heart rate was minimum 95 BPM, maximum 109 BPM, average 102 BPM. EMG showed 25.6 periodic limb movements per hour with 0.2 micriarousals per hour. PAP titration have been done with CPAP up to the pressure 12 cm H2O. Patient had problems with CPAP, switched to BPAP. BPAP titrated up to 15/11 cm H2O. The best results were at the pressure 10 cm H2O. Apnea hypopnea index reduced to 3.2. IMPRESSION: 1. Obstructive sleep apnea hypopnea syndrome mostly on controle with PAP treatment. 2. Significant periodic limb movements have been documented. Please see other impressions from consultation. PLAN: 1. The patient will have treatment with positive air pressure equipment with the level of pressure AutoPap 512 cm H2O and should use it every night for the whole night. 2. Watching weight. 3. Sleep hygiene with regular time in bed for at least 8 hours. 4. No driving if feeling any sleepiness. 5. I will see the patient for follow up visit to explain the results of the test, recommendations, check compliance with treatment and make any necessary adjustment related to mask fitting, pressure and humidification. 6. Please check iron profile including ferritin level. Low level of iron may increase risk for periodic limb movements Thank you very much for allowing me to participate in the management of your patient. Sincerely, Rohan Alberto MD, PhD, FAASM Diplomat of [place] [employer] Sleep Medicine Board of [place] [employer] [facility] cc: Hailey GloverC
== END 2024-09-15 05:40 | disposition home or self-care (01) ==
LOC: 3 N SLEEP 19:33
PROVIDERS: ATTEND Internal Medicine
DX: G47.33 Obstructive sleep apnea (adult) (pediatric) (principal); G47.61 Periodic limb movement disorder; F12.90 Cannabis use, unspecified, uncomplicated
CPT/HCPCS: 95811